=== PATIENT | male | born 1970 | race Caucasian/White ===

== ENCOUNTER 2018-08-24 02:08 | Inpatient (IN) | payer BC ==
[~2018-08-24] VITALS: Ht 157.5 cm; Wt 73.5 kg
--- NOTE | 2018-08-24 02:26 | ERD ---
ER Documentation Chief Complaint Chief Complaint cough x 8days; hx dialysis every MWF HPI The patient is a 48-year-old male, presenting to the ER because of persistent dry cough for the last 8 days with subjective fever. Denies nasal congestion, neck pain, chest pain, complains of vague abdominal discomfort for the last 8 day with diarrhea. He denies dysuria, diarrhea. He denies smoking or drinking. Past medical history: Chronic kidney disease on hemodialysis Sunday and Sunday Past surgical history: History of kidney transplant, right chest hemodialysis catheter, left upper extremity AV fistula ROS All systems reviewed and are negative except as per history of present illness. Allergies Allergies: Coded Allergies: No Known Allergy (Unverified , 08/24/18) Physical Exam Vitals Vital Signs Date Temp Pulse Resp B/P (MAP) Pulse Ox O2 O2 Flow FiO2 Time Delivery Rate 08/24/18 98.6 93 18 149/93 100 Room Air 04:49 (111) 08/24/18 100.7 105 20 169/98 99 02:12 (121) Physical Exam Const: No acute distress. Head: Atraumatic. Eyes: Normal Conjunctiva. ENT: Normal External Ears, Nose and Mouth. Neck: Full range of motion. No meningismus. Resp: Bilateral expiratory wheezes and crackle Cardio: Regular tachycardic Abd: Soft, non distended, normal bowel sounds, non tender. Skin: No petechiae or rashes. Back: No midline or flank tenderness. Ext: No cyanosis, or edema. Neur: Awake and alert. No focal deficit Psych: Normal Mood and Affect. Result Diagram: 08/24/1821408/24/18 021 Results 24 hrs Laboratory Tests Test 08/24/18 02:15 08/24/18 02:29 White Blood Count 8.9 10^3/ul Red Blood Count 2.81 10^6/ul Hemoglobin 7.6 g/dl Hematocrit 24.6 % Mean Corpuscular Volume 87.5 fl Mean Corpuscular Hemoglobin 27.0 pg Mean Corpuscular Hemoglobin Concent 30.9 g/dl Red Cell Distribution Width 15.4 % Platelet Count 282 10^3/UL Mean Platelet Volume 8.9 fl Immature Granulocytes % 0.800 % Neutrophils % 60.0 % Lymphocytes % 17.5 % Monocytes % 9.9 % Eosinophils % 11.0 % Basophils % 0.8 % Nucleated Red Blood Cells % 0.0 /100WBC Immature Granulocytes # 0.070 10^3/ul Neutrophils # 5.3 10^3/ul Lymphocytes # 1.6 10^3/ul Monocytes # 0.9 10^3/ul Eosinophils # 1.0 10^3/ul Basophils # 0.1 10^3/ul Nucleated Red Blood Cells # 0.0 10^3/ul Prothrombin Time 13.5 Sec Prothrombin Time Ratio 1.1 INR International Normalized Ratio 1.02 Activated Partial Thromboplast Time 43.3 Sec Sodium Level 136 mmol/L Potassium Level 5.1 mmol/L Chloride Level 94 mmol/L Carbon Dioxide Level 35 mmol/L Anion Gap 7 Blood Urea Nitrogen 19 mg/dl Creatinine 5.12 mg/dl Est Glomerular Filtrat Rate mL/min 12 mL/min Glucose Level 86 mg/dl Calcium Level 8.3 mg/dl Total Bilirubin 0.5 mg/dl Direct Bilirubin 0.00 mg/dl Indirect Bilirubin 0.5 mg/dl Aspartate Amino Transf (AST/SGOT) 44 IU/L Alanine Aminotransferase (ALT/SGPT) 22 IU/L Alkaline Phosphatase 102 IU/L Troponin I 0.016 ng/ml Total Protein 7.5 g/dl Albumin 3.3 g/dl Globulin 4.20 g/dl Albumin/Globulin Ratio 0.78 POC Venous Lactate 0.9 mmol/L Current Medications Medications Dose Sig/Zulma Start Time Status Last (Trade) Ordered Route PRN Stop Time Admin Dose Reason Admin 650 mg ONCE ONCE 08/24/18 DC 08/24/18 Acetaminophen PO 02:30 02:54 (Tylenol 08/24/18 02:31 Tab) Vancomycin 250 ml @ ONCE ONCE 08/24/18 08/24/18 HCl 125 mls/hr IVPB 03:30 04:08 08/24/18 05:29 Cefepime HCl 50 ml @ ONCE ONCE 08/24/18 DC 08/24/18 100 mls/hr IVPB 03:30 03:58 08/24/18 03:59 Procedures/MDM [place] [id number] Radiology Main Line: [phone] DIAGNOSTIC IMAGING REPORT Patient: ANISHA LOPEZ : 1970 Age: 48 Sex: M MR #: [id number] DOS: 08/24/18 0226 Ordering MD: CE ONEIL MD Location: E/R Room/Bed: PROCEDURE: XR Chest. CLINICAL INDICATION: Possible sepsis. TECHNIQUE: PA and Lateral views of the chest were obtained. COMPARISON: None. FINDINGS: Right central venous double-lumen dialysis catheter in place, with tip in the proximal right atrium. Cardiomegaly. Pulmonary vascular congestion and bilateral patchy mid lung and lung base air space disease. Airspace disease is greater in the bilateral mid lungs, and right greater than left. Airspace disease is also greater in the region of the right lung base. Findings may represent early pneumonias. Mild discoid atelectasis at the peripheral left mid lung. No signs of pleural fluid or pneumothorax are seen. The osseous structures and soft tissues are unremarkable. IMPRESSION: 1. Right central venous double-lumen dialysis catheter in place, with tip in the proximal right atrium. 2. Pulmonary vascular congestion is seen with bilateral patchy air space disease. 3. Airspace disease appears greater in the bilateral mid lungs, and is right greater than left. 4. Airspace disease is also greater in the region of the right lung base. 5. Differential considerations include early pneumonias. RPTAT: [facility] Physician Rhona Date Time Electronically viewed and signed by Physician Rhona on 08/24/2018 03:15 RS/ CC: CE ONEIL MD [id number] EKG: Read by emergency physician Rate/Rhythm: Normal Sinus Rhythm 76 beats/min QRS, ST, T-waves: No ST elevation, no T inversion, LAE Impression: Abnormal EKG MEDICAL MAKING DECISION: The patient is a 48-year-old male, presenting with acute bilateral pneumonia, was treated with Tylenol for fever, Xopenex 1.25 mg and Atrovent 0.5 mg for wheezing, vancomycin IV and cefepime IV for pneumonia with good response. The differential diagnoses considered include but are not limited to asthma, COPD, pneumonia, pulmonary embolus, pleural effusion, congestive heart failure. Departure Diagnosis: Primary Impression: Bilateral pneumonia Additional Impression: Anemia Condition: Stable Comments The patient's blood pressure was elevated (>120/80) but appears stable without evidence of hypertension emergency or urgency. The patient was counseled about the risks of hypertension and urged to pursue outpatient monitoring and therapy within a week with their primary care physician. I discussed the findings with the patient. I discussed the patient with Dr. Wallace at 4:30 AM , who was made aware of the lab, the treatment, the patient condi tion. The patient is admitted to [facility] Disclaimer: Inadvertent spelling and grammatical errors are likely due to EHR/dictation software use and do not reflect on the overall quality of patient care. Also, please note that the electronic time recorded on this note does not necessarily reflect the actual time of the patient encounter. CE ONEIL MD August 24, 2018 02:26
[2018-08-24] MEDS ORDERED: ACETAMINOPHEN 325 MG TAB PO ONE (02:30)
[2018-08-24] MEDS ORDERED: VANCOMYCIN 1 GM (PMX) 250 ML IVPB ONE (03:30)
[2018-08-24] MEDS ORDERED: CEFEPIME 1GM/50 ML (PMX) 50 ML IVPB ONE (03:30)
[2018-08-24] MEDS ORDERED: IPRATROPIUM (NEB) 0.5 MG/2.5 ML AMP HHN ONE (05:00)
[2018-08-24] MEDS ORDERED: LEVALBUTEROL (NEB) 1.25 MG/0.5 ML AMP HHN ONE (05:00)
[2018-08-24] MEDS ORDERED: FOLI-49 PO (05:10)
[2018-08-24] MEDS ORDERED: CARV6.2579 PO (05:10)
[2018-08-24] MEDS ORDERED: METO-336 PO (05:10)
[2018-08-24] MEDS ORDERED: AMLO-147 PO (05:11)
[2018-08-24 05:45] VITALS: BP 158/89; PULSE 90; RESP 18
[2018-08-24 06:00] VITALS: Ht 157.5 cm; Wt 73.5 kg
[2018-08-24] MEDS ORDERED: NACL 0.9% 3 ML SYG IV SCH (06:00)
[2018-08-24] MEDS ORDERED: ONDANSETRON 4 MG INJ IV PRN (06:00)
[2018-08-24] MEDS ORDERED: AMOX1TAB9 PO (06:10)
[2018-08-24] MEDS ORDERED: AZIT250T13 PO (06:10)
[2018-08-24] MEDS ORDERED: LOSA50TA14 PO (06:10)
[2018-08-24] MEDS ORDERED: GUAI1TBM12 PO (06:12)
[2018-08-24] MEDS ORDERED: Nyquil (06:12)
[2018-08-24 08:00] VITALS: BP 148/86; PULSE 86; RESP 20
[2018-08-24] MEDS: FOLIC ACID 1 MG TAB PO SCH (08:31)
[2018-08-24] MEDS: GUAIFENESIN 20 MG/ML 5ML CUP PO PRN ×2 (08:31→17:54)
[2018-08-24] MEDS: AMLODIPINE 10 MG TAB PO SCH (08:31)
--- NOTE | 2018-08-24 08:45 | HP ---
Date/Time of Note Date/Time of Note DATE: 08/24/18 TIME: 08:40 Assessment/Plan VTE Prophylaxis Risk score (from Ns)>0 risk: 4 SCD applied (from Ns): Yes Pharmacological prophylaxis: other Lines/Catheters IV Catheter Type (from Nrs): Saline Lock Assessment/Plan Assessment/Plan 1. Sepsis, as evidenced by fever and tachycardia: Secondary to pneumonia -will treat for healthcare last visit and pneumonia. Patient reported being hospitalized for 3 days in the hospital in [facility] -Follow-up culture results -Supplemental oxygen, bronchodilators as well as as needed antitussives -Obtain chest CT -Cough also result of pulmonary vascular congestion. See #2. Consider 2D echo 2. ESRD on HD (MWF) -Patient had a kidney transplant in 2013, but has been dialysis dependent for the past 5 months -Nephrology for dialysis 3. Anemia: Most likely chronic secondary to renal failure -We will however check ferritin/iron and FOBT to work-up for iron deficiency and GI bleed -Epogen per nephrology 4. Hypertension: Continue home meds. Adjust as needed Result Diagram: 08/24/18 0215 08/24/18 0215 Results 24hrs Laboratory Tests Test 08/24/18 02:15 08/24/18 02:29 08/24/18 05:28 08/24/18 07:22 White Blood Count 8.9 Red Blood Count 2.81 L Hemoglobin 7.6 L Hematocrit 24.6 L Mean Corpuscular 87.5 Volume Mean Corpuscular 27.0 L Hemoglobin Mean Corpuscular 30.9 L Hemoglobin Concent Red Cell 15.4 H Distribution Width Platelet Count 282 Mean Platelet Volume 8.9 Immature 0.800 H Granulocytes % Neutrophils % 60.0 Lymphocytes % 17.5 Monocytes % 9.9 Eosinophils % 11.0 H Basophils % 0.8 Nucleated Red Blood 0.0 Cells % Immature 0.070 H Granulocytes # Neutrophils # 5.3 Lymphocytes # 1.6 Monocytes # 0.9 Eosinophils # 1.0 H Basophils # 0.1 Nucleated Red Blood 0.0 Cells # Prothrombin Time 13.5 Prothrombin Time 1.1 Ratio INR International 1.02 Normalized Ratio Activated 43.3 H Partial Thromboplast Time Sodium Level 136 Potassium Level 5.1 Chloride Level 94 L Carbon Dioxide Level 35 H Anion Gap 7 Blood Urea Nitrogen 19 Creatinine 5.12 H Est Glomerular 12 L Filtrat Rate mL/min Glucose Level 86 Calcium Level 8.3 L Total Bilirubin 0.5 Direct Bilirubin 0.00 Indirect Bilirubin 0.5 Aspartate Amino 44 Transf (AST/SGOT) Alanine 22 Aminotransferase (AL T/SGPT) Alkaline Phosphatase 102 Troponin I 0.016 Total Protein 7.5 Albumin 3.3 Globulin 4.20 H Albumin/Globulin 0.78 Ratio POC Venous Lactate 0.9 Lactic Acid Level 0.8 0.6 HPI/ROS Admit Date/Time Admit Date/Time August 24, 2018 at 04:31 Hx of Present Illness This is a 48-year-old male with a history of hypertension, kidney transplant in 2013, now dialysis dependent for the past 5 months who presented to ER complaining of cough, shortness of breath and subjective fever of over 1 week d uration. He said he was admitted in the hospital and [place] for 3 days without improvement in his symptoms. Cough has occasionally been productive of minimal amount of white sputum. He also complains of bilateral abdominal pain every time he coughs. When he presented to the ER, he was febrile with temperature 100.7. Chest x-ray shows the followin. Right central venous double-lumen dialysis catheter in place, with tip in the proximal right atrium. 2. Pulmonary vascular congestion is seen with bilateral patchy air space disease. 3. Airspace disease appears greater in the bilateral mid lungs, and is right greater than left. 4. Airspace disease is also greater in the region of the right lung base. 5. Differential considerations include early pneumonias. PMH/Family/Social Past Medical History Medical History: other (See HPI) Past Surgical History Past Surgical Hx: other (See HPI) Family History Significant Family History: no pertinent family hx Social History Alcohol Use: none Smoking Status: Never smoker Drug Use: none Exam Constitutional: no acute distress Head: normocephalic, atraumatic Eyes: EOMI, PERRL Respiratory: clear to auscultation, normal air movement Cardiovascular: regular rate and rhythm, nl pulses Gastrointestinal: soft, non-tender Extremities: normal pulses Medications Current Medications IV Flush (NS 3 ml) 3 ml PER PROTOCOL IV ; Start 08/24/18 at 06:00 Ondansetron HCl (Zofran Inj) 4 mg Q6H PRN IV NAUSEA/VOMITING; Start 08/24/18 at 06:00 Acetaminophen (Tylenol Tab) 650 mg Q6H PRN PO .PAIN 1-3 OR TEMP; Start 08/24/18 at 06:00 Albuterol/ Ipratropium (Duoneb) 3 ml Q2H RESP THERAPY PRN HHN SHORTNESS OF BREATH; Start 08/24/18 at 06:00 Amlodipine Besylate (Norvasc) 10 mg DAILY PO Last administered on 08/24/18at 08:31; Admin Dose 10 MG; Start 08/24/18 at 09:00 Carvedilol (Coreg) 6.25 mg BID PO Last administered on 08/24/18 08:31; Admin Dose 6.25 MG; Start 08/24/18 at 09:00 Folic Acid (Folic Acid) 1 mg DAILY PO Last administered on 08/24/18 08:31; Admin Dose 1 MG; Start 08/24/18 at 09:00 Metoprolol Succinate (Toprol Xl) 100 mg QHS PO ; Start 08/24/18 at 21:00 Guaifenesin (Robitussin Liquid Cup) 100 mg Q6 PRN PO COUGH Last administered on 08/24/18at 08:31; Admin Dose 100 MG; Start 08/24/18 at 08:00; Stop 08/25/18 at 07:59 Coded Allergies: No Known Allergy (Unverified , 08/24/18) Social History Smoking Status: Never smoker Exam/Review of Systems Vital Signs Vitals Vital Signs Date Temp Pulse Resp B/P (MAP) Pulse Ox O2 O2 Flow FiO2 Time Delivery Rate 08/24/18 98.8 86 20 148/86 96 08:00 (106) 08/24/18 Room Air 05:45 08/24/18 21 05:08 Intake and Output 08/23/18 08/23/18 08/24/18 1515:00 23:00 07:00 IntakeIntake Total 50 ml BalanceBalance 50 ml MATT FERNANDEZ MD August 24, 2018 08:45
[2018-08-24] MEDS ORDERED: VANCOMYCIN IV PER PHARMACY XX SCH (09:00)
[2018-08-24] MEDS ORDERED: VANCOMYCIN 500 MG (PMX) 100 ML IVPB SCH (11:00)
--- NOTE | 2018-08-24 12:55 | PN ---
Date/Time of Note Date/Time of Note DATE: 08/24/18 TIME: 12:54 Assessment/Plan VTE Prophylaxis Risk score (from Ns)>0 risk: 4 SCD applied (from Ns): Yes Pharmacological prophylaxis: NA/contraindicated Pharm contraindication: low risk/ambulating Lines/Catheters IV [facility]from [facility] Saline Lock Assessment/Plan Hospital Course SUBJECTIVE: Complains of dyspnea with exertion. OBJECTIVE: Physical Exam General: Adequately build 48 year-old male lying in bed in no apparent distress. HEENT: Normocephalic, atraumatic. Eyes: Anicteric sclerae, conjunctivae clear. ENT: Nasal septum midline, oral mucosa moist. Neck supple, no JVD noticed. Respiratory: Bilaterally diminished breath sounds. Cardiac: Regular rate and rhythm. Abdomen: Soft, nontender, and nondistended. Bowel sounds positive in all 4 quadrants. Genitourinary: Deferred. Extremities: No cyanosis, no clubbing, no edema. Peripheral pulses palpable. Neurologic: Cranial nerves II through XII grossly intact. The patient is awake, alert, and oriented. Skin: Normal skin turgor. No skin rashes. Labs & Vitals per chart ASSESSMENT & PLAN 48-year-old male with past medical history of hypertension, status post renal transplant in 2013, now dependent on hemodialysis who presents to the emergency room complaining of cough for over 1 week duration with subjective fevers. The patient's chest imaging was showing evidence of bilateral patchy perihilar in filtrates. The patient was admitted to inpatient setting for further treatment and evaluation. 1. Healthcare associated pneumonia. -Continue vancomycin plus cefepime. -Pancultures pending. 2. Hypertension. -Continue antihypertensives. 3. End-stage renal disease on hemodialysis M/W/F. -Obtain nephrology consult. 4. Status post kidney transplant in 2013. -Obtain nephrology consult. 5. Normocytic anemia. -Stool for OB x1-. -Epogen will be deferred to nephrology. 6. Fluids, electrolytes, and nutrition. -Renal diet. 7. DVT prophylaxis -Bilateral SCDs. 8. Plan. -Continue antimicrobials. -Await clinical improvement before discharging the patient home. The patient was seen in collaboration with Dr. Quach. Result Diagram: 08/24/1821408/24/18214 Results 24hrs Laboratory Tests Test 08/24/18 02:15 08/24/18 02:29 08/24/18 05:28 08/24/18 07:22 White Blood Count 8.9 Red Blood Count 2.81 L Hemoglobin 7.6 L Hematocrit 24.6 L Mean Corpuscular 87.5 Volume Mean Corpuscular 27.0 L Hemoglobin Mean Corpuscular 30.9 L Hemoglobin Concent Red Cell 15.4 H Distribution Width Platelet Count 282 Mean Platelet Volume 8.9 Immature 0.800 H Granulocytes % Neutrophils % 60.0 Lymphocytes % 17.5 Monocytes % 9.9 Eosinophils % 11.0 H Basophils % 0.8 Nucleated Red Blood 0.0 Cells % Immature 0.070 H Granulocytes # Neutrophils # 5.3 Lymphocytes # 1.6 Monocytes # 0.9 Eosinophils # 1.0 H Basophils # 0.1 Nucleated Red Blood 0.0 Cells # Prothrombin Time 13.5 Prothrombin Time 1.1 Ratio INR International 1.02 Normalized Ratio Activated 43.3 H Partial Thromboplast Time Sodium Level 136 Potassium Level 5.1 Chloride Level 94 L Carbon Dioxide Level 35 H Anion Gap 7 Blood Urea Nitrogen 19 Creatinine 5.12 H Est Glomerular 12 L Filtrat Rate mL/min Glucose Level 86 Calcium Level 8.3 L Total Bilirubin 0.5 Direct Bilirubin 0.00 Indirect Bilirubin 0.5 Aspartate Amino 44 Transf (AST/SGOT) Alanine 22 Aminotransferase (AL T/SGPT) Alkaline Phosphatase 102 Troponin I 0.016 Total Protein 7.5 Albumin 3.3 Globulin 4.20 H Albumin/Globulin 0.78 Ratio POC Venous Lactate 0.9 Lactic Acid Level 0.8 0.6 Test 08/24/18 09:50 Stool Occult Blood NEGATIVE Exam/Review of Systems Exam Vitals Vital Signs Date Temp Pulse Resp B/P (MAP) Pulse Ox O2 O2 Flow FiO2 Time Delivery Rate 08/24/18 98.8 86 20 148/86 96 08:00 (106) 08/24/18 Room Air 05:45 08/24/18 21 05:08 Intake and Output 08/23/18 08/23/18 08/24/18 1515:00 23:00 07:00 IntakeIntake Total 50 ml BalanceBalance 50 ml Results Results 24hrs Laboratory Tests Test 08/24/18 02:15 08/24/18 02:29 08/24/18 05:28 08/24/18 07:22 White Blood Count 8.9 Red Blood Count 2.81 L Hemoglobin 7.6 L Hematocrit 24.6 L Mean Corpuscular 87.5 Volume Mean Corpuscular 27.0 L Hemoglobin Mean Corpuscular 30.9 L Hemoglobin Concent Red Cell 15.4 H Distribution Width Platelet Count 282 Mean Platelet Volume 8.9 Immature 0.800 H Granulocytes % Neutrophils % 60.0 Lymphocytes % 17.5 Monocytes % 9.9 Eosinophils % 11.0 H Basophils % 0.8 Nucleated Red Blood 0.0 Cells % Immature 0.070 H Granulocytes # Neutrophils # 5.3 Lymphocytes # 1.6 Monocytes # 0.9 Eosinophils # 1.0 H Basophils # 0.1 Nucleated Red Blood 0.0 Cells # Prothrombin Time 13.5 Prothrombin Time 1.1 Ratio INR International 1.02 Normalized Ratio Activated 43.3 H Partial Thromboplast Time Sodium Level 136 Potassium Level 5.1 Chloride Level 94 L Carbon Dioxide Level 35 H Anion Gap 7 Blood Urea Nitrogen 19 Creatinine 5.12 H Est Glomerular 12 L Filtrat Rate mL/min Glucose Level 86 Calcium Level 8.3 L Total Bilirubin 0.5 Direct Bilirubin 0.00 Indirect Bilirubin 0.5 Aspartate Amino 44 Transf (AST/SGOT) Alanine 22 Aminotransferase (AL T/SGPT) Alkaline Phosphatase 102 Troponin I 0.016 Total Protein 7.5 Albumin 3.3 Globulin 4.20 H Albumin/Globulin 0.78 Ratio POC Venous Lactate 0.9 Lactic Acid Level 0.8 0.6 Test 08/24/18 09:50 Stool Occult Blood NEGATIVE Medications Medication Current Medications IV Flush (NS 3 ml) 3 ml PER PROTOCOL IV ; Start 08/24/18 at 06:00 Ondansetron HCl (Zofran Inj) 4 mg Q6H PRN IV NAUSEA/VOMITING; Start 08/24/18 at 06:00 Acetaminophen (Tylenol Tab) 650 mg Q6H PRN PO .PAIN 1-3 OR TEMP; Start 08/24/18 at 06:00 Albuterol/ Ipratropium (Duoneb) 3 ml Q2H RESP THERAPY PRN HHN SHORTNESS OF BREATH; Start 08/24/18 at 06:00 Amlodipine Besylate (Norvasc) 10 mg DAILY PO Last administered on 08/24/18at 08:31; Admin Dose 10 MG; Start 08/24/18 at 09:00 Carvedilol (Coreg) 6.25 mg BID PO Last administered on 08/24/18at 08:31; Admin Dose 6.25 MG; Start 08/24/18 at 09:00 Folic Acid (Folic Acid) 1 mg DAILY PO Last administered on 08/24/18at 08:31; Admin Dose 1 MG; Start 08/24/18 at 09:00 Metoprolol Succinate (Toprol Xl) 100 mg QHS PO ; Start 08/24/18 at 21:00 Guaifenesin (Robitussin Liquid Cup) 100 mg Q6 PRN PO COUGH Last administered on 08/24/18at 08:31; Admin Dose 100 MG; Start 08/24/18 at 08:00; Stop 08/25/18 at 07:59 Cefepime HCl 50 ml @ 100 mls/hr Q24H IVPB ; Start 08/25/18 at 06:00 Vancomycin HCl (Vanco Iv Per Pharmacy) VANCOMYCIN PER PHARMACY PER PROTOCOL XX ; Start 08/24/18 at 09:00 Vancomycin HCl 100 ml @ 100 mls/hr ONCE@1100 IVPB Last administered on 08/24/18at 10:42; Admin Dose 100 MLS/HR; Start 08/24/18 at 11:00; Stop 08/24/18 at 16:00 BYRON NEGRETE NP August 24, 2018 12:55
[2018-08-24] MEDS: ALBUTEROL/IPRATROPIUM (NEB) 3 ML AMP HHN PRN ×2 (13:59→23:17)
[2018-08-24 14:00] VITALS: BP 150/76; PULSE 90; RESP 20
[2018-08-24] MEDS ORDERED: SODIUM POLYSTYRENE 15 GM KIT (POWDER + SORBITOL) PO ONE (14:00)
--- NOTE | 2018-08-24 17:21 | CONS ---
Assessment/Plan Assessment/Plan Assessment/Plan 1.Community acquired pneumonia 2.ESRD on HD, MWF 3.Htn 4.Hyperkalemia 5.Dyslipidemia 6.Anemia sec to Ckd -Hyperkalemia, kayexalate 30gm po x1 now -HD mon -Monitor lytes -Monitor bp -Anemia, monitor H&H for now Consultation Date/Type/Reason Admit Date/Time August 24, 2018 at 04:31 Type of Consult Nephrology Reason for Consultation ESRD on HD Date/Time of Note DATE: 08/24/18 TIME: 17:12 Respiratory: shortness of breath Past Medical History Medical History Nephrology: congestive heart failure, coronary artery disease, hypertension, renal disease Home Meds Reported Medications Guaifenesin/Dextromethorphan (Mucinex Dm ER 1,200-60 mg Tab) 1 Each Tbmp.12hr, 1 EACH PO, TAB 08/24/18 [Nyquil] No Conflict Check, 30 ML 08/24/18 Azithromycin* (Azithromycin*) 250 Mg Tablet, 500 MG PO ONCE for 1 Day, #1 TAB 08/24/18 Amoxicillin/Potassium Clav (Amox-Clav 500-125 mg Tablet) 500-125 mg Tab, 1 TAB PO DAILY for 5 Days, TAB 08/24/18 Losartan Potassium* (Losartan Potassium*) 50 Mg Tablet, 50 MG PO BID, TAB 08/24/18 Amlodipine Besylate* (Amlodipine Besylate*) 10 Mg Tablet, 10 MG PO DAILY for 30 Days, #30 08/24/18 Metoprolol Succinate* (Toprol XL*) 100 Mg Tab.sr.24h, 100 MG PO QHS for 30 Days, #30 08/24/18 Carvedilol* (Carvedilol*) 6.25 Mg Tablet, 6.25 MG PO BID for 30 Days, #60 08/24/18 Folic Acid* (Folic Acid*) 1 Mg Tablet, 1 MG PO DAILY for 30 Days, #30 08/24/18 Medications Current Medications IV Flush (NS 3 ml) 3 ml PER PROTOCOL IV ; Start 08/24/18 at 06:00 Ondansetron HCl (Zofran Inj) 4 mg Q6H PRN IV NAUSEA/VOMITING; Start 08/24/18 at 06:00 Acetaminophen (Tylenol Tab) 650 mg Q6H PRN PO .PAIN 1-3 OR TEMP; Start 08/24/18 at 06:00 Albuterol/ Ipratropium (Duoneb) 3 ml Q2H RESP THERAPY PRN HHN SHORTNESS OF BREATH Last administered on 08/24/18at 13:59; Admin Dose 3 ML; Start 08/24/18 at 06:00 Amlodipine Besylate (Norvasc) 10 mg DAILY PO Last administered on 08/24/18 08:31; Admin Dose 10 MG; Start 08/24/18 at 09:00 Carvedilol (Coreg) 6.25 mg BID PO Last administered on 08/24/18 08:31; Admin Dose 6.25 MG; Start 08/24/18 at 09:00 Folic Acid (Folic Acid) 1 mg DAILY PO Last administered on 08/24/18 08:31; Admin Dose 1 MG; Start 08/24/18 at 09:00 Metoprolol Succinate (Toprol Xl) 100 mg QHS PO ; Start 08/24/18 at 21:00 Guaifenesin (Robitussin Liquid Cup) 100 mg Q6 PRN PO COUGH Last administered on 08/24/18 08:31; Admin Dose 100 MG; Start 08/24/18 at 08:00; Stop 08/25/18 at 07:59 Cefepime HCl 50 ml @ 100 mls/hr Q24H IVPB ; Start 08/25/18 at 06:00 Vancomycin HCl (Vanco Iv Per Pharmacy) VANCOMYCIN PER PHARMACY PER PROTOCOL XX ; Start 08/24/18 at 09:00 Allergies: Coded Allergies: No Known Allergy (Unverified , 08/24/18) Past Surgical History Past Surgical Hx: other (Access placemnet for HD) Family History Significant Family History: no pertinent family hx Social History Alcohol Use: none Smoking Status: Never smoker Exam/Review of Systems Vital Signs Vitals Vital Signs Date Temp Pulse Resp B/P (MAP) Pulse Ox O2 O2 Flow FiO2 Time Delivery Rate 08/24/18 88 20 21 14:03 08/24/18 98.9 150/76 98 14:00 (100) 08/24/18 Room Air 05:45 Intake and Output 08/23/18 08/23/18 08/24/18 1515:00 23:00 07:00 IntakeIntake Total 50 ml BalanceBalance 50 ml Exam Respiratory: clear to auscultation Cardiovascular: regular rate and rhythm Gastrointestinal: soft Extremities: other (No edema) Neurological: nl mental status Skin: nl turgor Labs Result Diagram: 08/24/18 0215 08/24/18 0215 Results 24hrs Laboratory Tests Test 08/24/18 02:15 08/24/18 02:29 08/24/18 05:28 08/24/18 07:22 White Blood Count 8.9 Red Blood Count 2.81 L Hemoglobin 7.6 L Hematocrit 24.6 L Mean Corpuscular 87.5 Volume Mean Corpuscular 27.0 L Hemoglobin Mean Corpuscular 30.9 L Hemoglobin Concent Red Cell 15.4 H Distribution Width Platelet Count 282 Mean Platelet Volume 8.9 Immature 0.800 H Granulocytes % Neutrophils % 60.0 Lymphocytes % 17.5 Monocytes % 9.9 Eosinophils % 11.0 H Basophils % 0.8 Nucleated Red Blood 0.0 Cells % Immature 0.070 H Granulocytes # Neutrophils # 5.3 Lymphocytes # 1.6 Monocytes # 0.9 Eosinophils # 1.0 H Basophils # 0.1 Nucleated Red Blood 0.0 Cells # Prothrombin Time 13.5 Prothrombin Time 1.1 Ratio INR International 1.02 Normalized Ratio Activated 43.3 H Partial Thromboplast Time Sodium Level 136 Potassium Level 5.1 Chloride Level 94 L Carbon Dioxide Level 35 H Anion Gap 7 Blood Urea Nitrogen 19 Creatinine 5.12 H Est Glomerular 12 L Filtrat Rate mL/min Glucose Level 86 Calcium Level 8.3 L Total Bilirubin 0.5 Direct Bilirubin 0.00 Indirect Bilirubin 0.5 Aspartate Amino 44 Transf (AST/SGOT) Alanine 22 Aminotransferase (AL T/SGPT) Alkaline Phosphatase 102 Troponin I 0.016 Total Protein 7.5 Albumin 3.3 Globulin 4.20 H Albumin/Globulin 0.78 Ratio POC Venous Lactate 0.9 Lactic Acid Level 0.8 0.6 Test 08/24/18 09:50 Stool Occult Blood NEGATIVE Medications Medications Current Medications IV Flush (NS 3 ml) 3 ml PER PROTOCOL IV ; Start 08/24/18 at 06:00 Ondansetron HCl (Zofran Inj) 4 mg Q6H PRN IV NAUSEA/VOMITING; Start 08/24/18 at 06:00 Acetaminophen (Tylenol Tab) 650 mg Q6H PRN PO .PAIN 1-3 OR TEMP; Start 08/24/18 at 06:00 Albuterol/ Ipratropium (Duoneb) 3 ml Q2H RESP THERAPY PRN HHN SHORTNESS OF BREATH Last administered on 08/24/18 13:59; Admin Dose 3 ML; Start 08/24/18 at 06:00 Amlodipine Besylate (Norvasc) 10 mg DAILY PO Last administered on 08/24/18 08:31; Admin Dose 10 MG; Start 08/24/18 at 09:00 Carvedilol (Coreg) 6.25 mg BID PO Last administered on 08/24/18 08:31; Admin Dose 6.25 MG; Start 08/24/18 at 09:00 Folic Acid (Folic Acid) 1 mg DAILY PO Last administered on 08/24/18 08:31; Admin Dose 1 MG; Start 08/24/18 at 09:00 Metoprolol Succinate (Toprol Xl) 100 mg QHS PO ; Start 08/24/18 at 21:00 Guaifenesin (Robitussin Liquid Cup) 100 mg Q6 PRN PO COUGH Last administered on 08/24/18 08:31; Admin Dose 100 MG; Start 08/24/18 at 08:00; Stop 08/25/18 at 07:59 Cefepime HCl 50 ml @ 100 mls/hr Q24H IVPB ; Start 08/25/18 at 06:00 Vancomycin HCl (Vanco Iv Per Pharmacy) VANCOMYCIN PER PHARMACY PER PROTOCOL XX ; Start 08/24/18 at 09:00 KEE HERNANDEZ August 24, 2018 17:21
[2018-08-24 20:00] VITALS: BP 154/84; PULSE 95; RESP 19
[2018-08-24] MEDS: METOPROLOL (XL) 100 MG TAB PO SCH (21:03)
[2018-08-25] VITALS (19 sets, daily range): BP systolic 157–183; BP diastolic 88–106; PULSE 80–114; RESP 17–18
[2018-08-25] MEDS: GUAIFENESIN 20 MG/ML 5ML CUP PO PRN (02:48)
[2018-08-25] MEDS: CEFEPIME 1GM/50 ML (PMX) 50 ML IVPB SCH (06:01)
[2018-08-25] MEDS ORDERED: SOD CHLORIDE 0.9% 250 ML IV* ONE (07:37)
--- NOTE | 2018-08-25 07:53 | PN ---
Date/Time of Note Date/Time of Note DATE: 08/25/18 TIME: 07:52 Assessment/Plan VTE Prophylaxis Risk score (from Ns)>0 risk: 4 SCD applied (from Ns): Yes Pharmacological prophylaxis: NA/contraindicated Pharm contraindication: other (Anemia) Lines/Catheters IV [facility] Sal[place] Lock Assessment/Plan Hospital Course SUBJECTIVE: Complains of cough. OBJECTIVE: Physical Exam General: Adequately build 48 year-old male lying in bed in no apparent distress. HEENT: Normocephalic, atraumatic. Eyes: Anicteric sclerae, conjunctivae clear. ENT: Nasal septum midline, oral mucosa moist. Neck supple, no JVD noticed. Respiratory: Bilaterally diminished breath sounds. Cardiac: Regular rate and rhythm. Abdomen: Soft, nontender, and nondistended. Bowel sounds positive in all 4 quadrants. Genitourinary: Deferred. Extremities: No cyanosis, no clubbing, no edema. Peripheral pulses palpable. Neurologic: Cranial nerves II through XII grossly intact. The patient is awake, alert, and oriented. Skin: Normal skin turgor. No skin rashes. Labs & Vitals per chart ASSESSMENT & PLAN 48-year-old male with past medical history of hypertension, status post renal transplant in 2013, now dependent on hemodialysis who presents to the emergency room complaining of cough for over 1 week duration with subjective fevers. The patient's chest imaging was showing evidence of bilateral patchy perihilar infiltrates. The patient was admitted to inpatient setting for further treatment and evaluation. 1. Healthcare associated pneumonia. -Continue vancomycin plus cefepime. -Pancultures negative so far. 2. Hypertension. -Continue antihypertensives. 3. End-stage renal disease on hemodialysis M/W/F. -Nephrology following. 4. Status post kidney transplant in 2013. -Nephrology following. 5. Normocytic anemia. -Stool for OB x1-. -Epogen will be deferred to nephrology. -PRBC transfusion ordered. -Start iron supplements. 6. Fluids, electrolytes, and nutrition. -Renal diet. 7. DVT prophylaxis -Bilateral SCDs. 8. Plan. -Continue antimicrobials. -Await clinical improvement before discharging the patient home. The patient was seen in collaboration with Dr. Quach. Result Diagram: 08/25/18 0505 08/25/18 0505 Results 24hrs Laboratory Tests Test 08/24/18 09:50 08/25/18 05:05 Stool Occult Blood NEGATIVE White Blood Count 8.9 Red Blood Count 2.35 L Hemoglobin 6.5 *L Hematocrit 20.3 L Mean Corpuscular Volume 86.4 Mean Corpuscular Hemoglobin 27.7 L Mean Corpuscular Hemoglobin Concent 32.0 Red Cell Distribution Width 15.3 H Platelet Count 264 Mean Platelet Volume 9.3 Immature Granulocytes % 0.600 H Neutrophils % 62.4 Lymphocytes % 16.6 Monocytes % 10.1 Eosinophils % 9.6 H Basophils % 0.7 Nucleated Red Blood Cells % 0.0 Immature Granulocytes # 0.050 H Neutrophils # 5.6 Lymphocytes # 1.5 Monocytes # 0.9 Eosinophils # 0.9 H Basophils # 0.1 Nucleated Red Blood Cells # 0.0 Pathologist Review (Hematology) YES Sodium Level 130 L Potassium Level 4.9 Chloride Level 92 L Carbon Dioxide Level 27 Anion Gap 11 Blood Urea Nitrogen 28 H Creatinine 8.02 #H Est Glomerular Filtrat Rate mL/min 7 L Glucose Level 91 Calcium Level 8.2 L Phosphorus Level 3.3 Magnesium Level 1.9 Iron Level 16 L Total Iron Binding Capacity 146 L Percent Iron Saturation 11 L Ferritin 891.0 H Total Bilirubin 0.4 Direct Bilirubin 0.00 Indirect Bilirubin 0.4 Aspartate Amino Transf (AST/SGOT) 34 Alanine Aminotransferase (ALT/SGPT) 21 Alkaline Phosphatase 96 Total Protein 7.1 Albumin 3.1 L Globulin 4.00 H Albumin/Globulin Ratio 0.77 Triglycerides Level 149 Cholesterol Level 112 LDL Cholesterol, Calculated 56 HDL Cholesterol 26 L Cholesterol/HDL Ratio 4.3 Exam/Review of Systems Exam Vitals Vital Signs Date Temp Pulse Resp B/P (MAP) Pulse Ox O2 O2 Flow FiO2 Time Delivery Rate 08/25/18 98.5 99 18 162/88 99 02:22 (112) 08/24/18 21 23:17 08/24/18 Room Air 05:45 Intake and Output 08/24/18 08/24/18 08/25/18 1515:00 23:00 07:00 IntakeIntake Total 860 ml 400 ml BalanceBalance 860 ml 400 ml Results Results 24hrs Laboratory Tests Test 08/24/18 09:50 08/25/18 05:05 Stool Occult Blood NEGATIVE White Blood Count 8.9 Red Blood Count 2.35 L Hemoglobin 6.5 *L Hematocrit 20.3 L Mean Corpuscular Volume 86.4 Mean Corpuscular Hemoglobin 27.7 L Mean Corpuscular Hemoglobin Concent 32.0 Red Cell Distribution Width 15.3 H Platelet Count 264 Mean Platelet Volume 9.3 Immature Granulocytes % 0.600 H Neutrophils % 62.4 Lymphocytes % 16.6 Monocytes % 10.1 Eosinophils % 9.6 H Basophils % 0.7 Nucleated Red Blood Cells % 0.0 Immature Granulocytes # 0.050 H Neutrophils # 5.6 Lymphocytes # 1.5 Monocytes # 0.9 Eosinophils # 0.9 H Basophils # 0.1 Nucleated Red Blood Cells # 0.0 Pathologist Review (Hematology) YES Sodium Level 130 L Potassium Level 4.9 Chloride Level 92 L Carbon Dioxide Level 27 Anion Gap 11 Blood Urea Nitrogen 28 H Creatinine 8.02 #H Est Glomerular Filtrat Rate mL/min 7 L Glucose Level 91 Calcium Level 8.2 L Phosphorus Level 3.3 Magnesium Level 1.9 Iron Level 16 L Total Iron Binding Capacity 146 L Percent Iron Saturation 11 L Ferritin 891.0 H Total Bilirubin 0.4 Direct Bilirubin 0.00 Indirect Bilirubin 0.4 Aspartate Amino Transf (AST/SGOT) 34 Alanine Aminotransferase (ALT/SGPT) 21 Alkaline Phosphatase 96 Total Protein 7.1 Albumin 3.1 L Globulin 4.00 H Albumin/Globulin Ratio 0.77 Triglycerides Level 149 Cholesterol Level 112 LDL Cholesterol, Calculated 56 HDL Cholesterol 26 L Cholesterol/HDL Ratio 4.3 Medications Medication Current Medications IV Flush (NS 3 ml) 3 ml PER PROTOCOL IV ; Start 08/24/18 at 06:00 Ondansetron HCl (Zofran Inj) 4 mg Q6H PRN IV NAUSEA/VOMITING; Start 08/24/18 at 06:00 Acetaminophen (Tylenol Tab) 650 mg Q6H PRN PO .PAIN 1-3 OR TEMP; Start 08/24/18 at 06:00 Albuterol/ Ipratropium (Duoneb) 3 ml Q2H RESP THERAPY PRN HHN SHORTNESS OF BREATH Last administered on 08/24/18at 23:17; Admin Dose 3 ML; Start 08/24/18 at 06:00 Amlodipine Besylate (Norvasc) 10 mg DAILY PO Last administered on 08/24/18at 08:31; Admin Dose 10 MG; Start 08/24/18 at 09:00 Carvedilol (Coreg) 6.25 mg BID PO Last administered on 08/24/18at 21:04; Admin Dose 6.25 MG; Start 08/24/18 at 09:00 Folic Acid (Folic Acid) 1 mg DAILY PO Last administered on 08/24/18at 08:31; Admin Dose 1 MG; Start 08/24/18 at 09:00 Metoprolol Succinate (Toprol Xl) 100 mg QHS PO Last administered on 08/24/18at 21:03; Admin Dose 100 MG; Start 08/24/18 at 21:00 Guaifenesin (Robitussin Liquid Cup) 100 mg Q6 PRN PO COUGH Last administered on 08/25/18at 02:48; Admin Dose 100 MG; Start 08/24/18 at 08:00; Stop 08/25/18 at 07:59 Cefepime HCl 50 ml @ 100 mls/hr Q24H IVPB Last administered on 08/25/18at 06:01; Admin Dose 100 MLS/HR; Start 08/25/18 at 06:00 Vancomycin HCl (Vanco Iv Per Pharmacy) VANCOMYCIN PER PHARMACY PER PROTOCOL XX ; Start 08/24/18 at 09:00 BYRON NEGRETE NP August 25, 2018 07:53
[2018-08-25] MEDS ORDERED: SOD CHLORIDE 0.9% 1,000 ML IV PRN ×2 (08:28→08:33)
[2018-08-25] MEDS ORDERED: SODIUM CHLORIDE 0.9% 1L BAG IV PRN ×2 (08:30→09:00)
[2018-08-25] MEDS: AMLODIPINE 10 MG TAB PO SCH ×3 (09:00→16:18)
[2018-08-25] MEDS: FOLIC ACID 1 MG TAB PO SCH (10:02)
[2018-08-25] MEDS: GUAIFENESIN/DM 5ML CUP PO PRN ×2 (15:40→23:30)
[2018-08-25] MEDS: ACETAMINOPHEN 325 MG TAB PO PRN ×2 (16:19→23:36)
--- NOTE | 2018-08-25 16:51 | CONS ---
Assessment/Plan Assessment/Plan Assessment/Plan 1.Community acquired pneumonia 2.ESRD on HD, MWF 3.Htn 4.Hyperkalemia 5.Dyslipidemia 6.Anemia sec to Ckd 7.s/p kidney transplant -Hyperkalemia improved -Hyponatremia correct with HD -HD today given that pt had prbc transfusion and to avoid fluid overload -HD am, pts regular HD treatment -Monitor lytes -Uncontrolled Htn. Bp meds adjusted -Anemia, monitor H&H for now. Check iron studies. Stool OB x1 positive Consultation Date/Type/Reason Admit Date/Time August 24, 2018 at 04:31 Type of Consult Nephrology Date/Time of Note DATE: 08/25/18 TIME: 16:49 Hx of Present Illness Pt w/o complaints. PRBC transfusion for anemia Respiratory: cough Exam/Review of Systems Vital Signs Vitals Vital Signs Date Temp Pulse Resp B/P (MAP) Pulse Ox O2 O2 Flow FiO2 Time Delivery Rate 08/25/18 95 17 160/94 96 Room Air 14:51 (116) 08/25/18 98.8 08:57 08/24/18 21 23:17 Intake and Output 08/24/18 08/24/18 08/25/18 1515:00 23:00 07:00 IntakeIntake Total 860 ml 400 ml BalanceBalance 860 ml 400 ml Exam Exam HEENT: Mild pallor CHEST: clear CVS: S1S2 ABD: soft, BS+ EXT: No edema Constitutional: other (No distress) Labs Result Diagram: 08/25/18 0505 08/25/18 0505 Results 24hrs Laboratory Tests Test 08/25/18 05:05 08/25/18 09:30 White Blood Count 8.9 Red Blood Count 2.35 L Hemoglobin 6.5 *L Hematocrit 20.3 L Mean Corpuscular Volume 86.4 Mean Corpuscular Hemoglobin 27.7 L Mean Corpuscular Hemoglobin Concent 32.0 Red Cell Distribution Width 15.3 H Platelet Count 264 Mean Platelet Volume 9.3 Immature Granulocytes % 0.600 H Neutrophils % 62.4 Segmented Neutrophils % (Manual) 71 Band Neutrophils % (Manual) 2 Lymphocytes % 16.6 Lymphocytes % (Manual) 10 L Reactive Lymphocytes % (Manual) 2 H Monocytes % 10.1 Monocytes % (Manual) 5 Eosinophils % 9.6 H Eosinophils % (Manual) 10 H Basophils % 0.7 Nucleated Red Blood Cells % 0.0 Immature Granulocytes # 0.050 H Neutrophils # 5.6 Neutrophils # (Manual) 6.3 Band Neutrophils # 0.1 Lymphocytes (Manual) 0.8 Lymphocytes # 1.5 Reactive Lymphocytes # 0.1 H Monocytes # 0.9 Monocytes # (Manual) 0.4 Eosinophils # 0.9 H Basophils # 0.1 Nucleated Red Blood Cells # 0.0 Pathologist Review (Hematology) YES Platelet Estimate NORMAL Polychromasia 1+ Anisocytosis 1+ Microcytosis 1+ Sodium Level 130 L Potassium Level 4.9 Chloride Level 92 L Carbon Dioxide Level 27 Anion Gap 11 Blood Urea Nitrogen 28 H Creatinine 8.02 #H Est Glomerular Filtrat Rate mL/min 7 L Glucose Level 91 Hemoglobin A1c 5.6 Calcium Level 8.2 L Phosphorus Level 3.3 Magnesium Level 1.9 Iron Level 16 L Total Iron Binding Capacity 146 L Percent Iron Saturation 11 L Ferritin 891.0 H Total Bilirubin 0.4 Direct Bilirubin 0.00 Indirect Bilirubin 0.4 Aspartate Amino Transf (AST/SGOT) 34 Alanine Aminotransferase (ALT/SGPT) 21 Alkaline Phosphatase 96 Total Protein 7.1 Albumin 3.1 L Globulin 4.00 H Albumin/Globulin Ratio 0.77 Triglycerides Level 149 Cholesterol Level 112 LDL Cholesterol, Calculated 56 HDL Cholesterol 26 L Cholesterol/HDL Ratio 4.3 Hepatitis B Surface Antigen NEGATIVE Medications Medications Current Medications IV Flush (NS 3 ml) 3 ml PER PROTOCOL IV ; Start 08/24/18 at 06:00 Ondansetron HCl (Zofran Inj) 4 mg Q6H PRN IV NAUSEA/VOMITING; Start 08/24/18 at 06:00 Acetaminophen (Tylenol Tab) 650 mg Q6H PRN PO .PAIN 1-3 OR TEMP Last administered on 08/25/18at 16:19; Admin Dose 650 MG; Start 08/24/18 at 06:00 Albuterol/ Ipratropium (Duoneb) 3 ml Q2H RESP THERAPY PRN HHN SHORTNESS OF BREATH Last administered on 08/24/18at 23:17; Admin Dose 3 ML; Start 08/24/18 at 06:00 Amlodipine Besylate (Norvasc) 10 mg DAILY PO Last administered on 08/25/18at 16:18; Admin Dose 10 MG; Start 08/24/18 at 09:00 Carvedilol (Coreg) 6.25 mg BID PO Last administered on 08/25/18at 10:06; Admin Dose 6.25 MG; Start 08/24/18 at 09:00 Folic Acid (Folic Acid) 1 mg DAILY PO Last administered on 08/25/18at 10:02; Admin Dose 1 MG; Start 08/24/18 at 09:00 Metoprolol Succinate (Toprol Xl) 100 mg QHS PO Last administered on 08/24/18at 21:03; Admin Dose 100 MG; Start 08/24/18 at 21:00 Cefepime HCl 50 ml @ 100 mls/hr Q24H IVPB Last administered on 08/25/18at 06:01; Admin Dose 100 MLS/HR; Start 08/25/18 at 06:00 Vancomycin HCl (Vanco Iv Per Pharmacy) VANCOMYCIN PER PHARMACY PER PROTOCOL XX ; Start 08/24/18 at 09:00 Sodium Chloride 1,000 ml @ 0 mls/hr Q0M PRN IV TO KEEP SBP ABOVE 90; Start 08/25/18 at 08:28 Epoetin Josh-epbx (Retacrit (Non-Esrd)) 10,000 unit MoWeFr@17 SC ; Start 08/26/18 at 17:00 Sodium Chloride (NS) -To prime the dialy... DIRECTED FOR HD PRN IV HD; Start 08/25/18 at 08:30 Heparin Sodium (Porcine) (Heparin (1000 Units/ml)) 4,000 unit AFTER DIALYSIS CATHETER ; Start 08/25/18 at 09:00 Sodium Chloride 1,000 ml @ 0 mls/hr Q0M PRN IV TO KEEP SBP ABOVE 90; Start 08/25/18 at 08:33 Sodium Chloride (NS) -To prime the dialy... DIRECTED FOR HD PRN IV HD; Start 08/25/18 at 09:00 Miscellaneous Information (*Rx Drug Level Order Reminder*) RANDOM VANCO LEVEL... 0500 ONCE XX ; Start 08/26/18 at 05:00; Stop 08/26/18 at 05:01 Ferric Sodium Gluconate Complex 125 mg/Sodium Chloride 100 ml @ 100 mls/hr DAILY@1300 IVPB ; Start 08/26/18 at 13:00; Stop 08/28/18 at 13:59 Guaifenesin/ Dextromethorphan (Robitussin Dm Liquid Cup) 5 ml Q4H PRN PO Cough Last administered on 08/25/18at 15:40; Admin Dose 5 ML; Start 08/25/18 at 14:00 KEE HERNANDEZ August 25, 2018 16:51
--- NOTE | 2018-08-25 19:18 | RADRPT ---
Echocardiogram Report Patient Name: ANISHA LOPEZPatient ID: [id number] : 1970 (48y 6m)Study Date: 08/25/2018 8:52:09 AM Gender: Reneecession #: [id number] Tech: RENEE Location: [facility] Ref.Physician: MATT FERNANDEZ Height(Cm): 157 BSA: 1.79Weight(Kg): 73.5 Quality: AdequateOrder Physician: MATT FERNANDEZ Account #: Procedures: Echocardiographic Report: Transthoracic echocardiogram with complete 2D, M-Mode, and doppler examination. Indications: Congestive Heart Failure. Measurements: 2D/M Mode Doppler Measurement Value Normal Range Measurement Value Normal Range LVIDd 2D 5.7 [ 4.2 - 5.8 ] cm AV Peak Cristiano 1.6 [ 100.0 - 170.0 ] cm/se c LVIDs 2D 3.5 [ 2.5 - 4.0 ] cm AV Peak PG 11.0 [ 2.0 - 9.0 ] mmHg LVPWd 2D 1.2 [ 0.6 - 1.0 ] cm LVOT Peak Cristiano 1.1 [ 70.0 - 110.0 ] cm/sec IVSd 2D 1.2 [ 0.6 - 1.0 ] cm LVOT Peak PG 4.0 [ 2.0 - 6.0 ] mmHg AoR Diam 2D 3.3 [ 2.6 - 3.4 ] cm MV E Peak Cristiano 1.2 [ 60.0 - 130.0 ] cm/sec EDV 2D 163.0 [ 62.0 - 150.0 ] ml MV A Peak Cristiano 0.7 [ 100.0 - 120.0 ] cm/se c ESV 2D 52.3 [ 21.0 - 61.0 ] ml MV E/A 1.9 [ 0.8 - 1.5 ] ratio EF 2D 67.9 [ 52.0 - 72.0 ] percent MV PHT 41.0 [ 20.0 - 100.0 ] msec LA Dimen 2D 4.7 [ 3.0 - 4.0 ] cm MV Decel Time 140 [ 104 - 258 ] msec MV Decel [place] 9 Lat E` Cristiano 0.1 [ 10.0 - 15.0 ] cm/sec Lateral E/E` 10.0 [ 1.0 - 2.0 ] ratio Med E` Cristiano 0.1 cm/sec MV E/A 1.9 [ 0.8 - 1.5 ] ratio MVA PHT 5.4 [ 2.0 - 4.0 ] cm2 PV Peak Cristiano 1.3 [ 40.0 - 80.0 ] cm/sec PV Peak PG 7.0 mmHg Findings: Left Ventricle: Mild concentric left ventricular hypertrophy. Mild enlargement of left ventricle cavity. Mild global left ventricular systolic dysfunction. Ejection fraction is visually estimated at 45-50 %. Abnormal Diastolic Function. E/E'= 15. Right Ventricle: Normal right ventricular size. Normal right ventricular systolic function. Left Atrium: There is mild enlargement of left atrium. Right Atrium: The right atrium is normal in size. Atrial Septum: Normal atrial septum. Mitral Valve: Normal appearance of the mitral valve. Mild to moderate mitral valve regurgitation. Aortic Valve: No significant aortic stenosis or insufficiency. Normal trileaflet aortic valve structure. Tricuspid Valve: Normal appearance and function of the tricuspid valve with trace physiologic regurgitation. Pulmonic Valve: Normal pulmonic valve appearance. There is trace pulmonic regurgitation. Pericardium: Normal pericardium with no significant pericardial effusion. Pleural effusion seen. Aorta: Normal aortic root. IVC: Normal size and normal respiratory collapse consistent with normal right atrial pressure. Pulmonary Artery: Normal pulmonary artery size. Conclusions: Mild concentric left ventricular hypertrophy. Mild enlargement of left ventricle cavity. Mild global left ventricular systolic dysfunction. Ejection fraction is visually estimated at 45-50 %. Abnormal Diastolic Function. E/E'= 15. There is mild enlargement of left atrium. Normal appearance of the mitral valve. Mild to moderate mitral valve regurgitation. Normal appearance and function of the tricuspid valve with trace physiologic regurgitation. Normal pulmonic valve appearance. There is trace pulmonic regurgitation. n. Electronically Signed By: Yanick Joya 2018-08-25 19:18:18 PDT
[2018-08-25] MEDS: DOXAZOSIN 2 MG TAB PO SCH (21:08)
[2018-08-25] MEDS: METOPROLOL (XL) 100 MG TAB PO SCH (21:10)
[2018-08-25] MEDS ORDERED: LOPERAMIDE 2 MG CAP PO ONE (23:00)
[2018-08-25] MEDS ORDERED: LOPERAMIDE 2 MG CAP PO PRN (23:00)
[2018-08-26] VITALS (18 sets, daily range): BP systolic 150–185; BP diastolic 82–104; PULSE 90–109; RESP 17–19
[2018-08-26] MEDS: CEFEPIME 1GM/50 ML (PMX) 50 ML IVPB SCH (05:53)
[2018-08-26] MEDS: GUAIFENESIN/DM 5ML CUP PO PRN ×3 (05:53→21:12)
[2018-08-26] MEDS: ALBUTEROL/IPRATROPIUM (NEB) 3 ML AMP HHN PRN ×2 (06:09→17:58)
[2018-08-26] MEDS: FOLIC ACID 1 MG TAB PO SCH (08:52)
[2018-08-26] MEDS: AMLODIPINE 10 MG TAB PO SCH (08:52)
[2018-08-26] MEDS: DOXAZOSIN 2 MG TAB PO SCH ×2 (08:53→21:11)
[2018-08-26] MEDS ORDERED: hydrALAzine 20 MG INJ IV PRN (12:00)
[2018-08-26] MEDS: HEPARIN 1000 UNITS/ML 10 ML INJ CATHETER SCH (13:22)
[2018-08-26] MEDS: SOD FERRIC GLUC COMPLX 125 MG in SOD CHLORIDE 0.9% 100 ML IVPB SCH (13:40)
--- NOTE | 2018-08-26 14:53 | PN ---
Date/Time of Note Date/Time of Note DATE: 08/26/18 TIME: 14:51 Assessment/Plan VTE Prophylaxis Risk score (from Ns)>0 risk: 3 SCD applied (from Ns): Yes Pharmacological prophylaxis: NA/contraindicated Pharm contraindication: other (anemia) Lines/Catheters [facility] (from [facility]): Saline Lock Assessment/Plan Hospital Course SUBJECTIVE: Complains of cough. OBJECTIVE: Physical Exam General: Adequately build 48 year-old male lying in bed in no apparent distress. HEENT: Normocephalic, atraumatic. Eyes: Anicteric sclerae, conjunctivae clear. ENT: Nasal septum midline, oral mucosa moist. Neck supple, no JVD noticed. Respiratory: Bilaterally diminished breath sounds. Cardiac: Regular rate and rhythm. Abdomen: Soft, nontender, and nondistended. Bowel sounds positive in all 4 quadrants. Genitourinary: Deferred. Extremities: No cyanosis, no clubbing, no edema. Peripheral pulses palpable. Neurologic: Cranial nerves II through XII grossly intact. The patient is awake, alert, and oriented. Skin: Normal skin turgor. No skin rashes. Labs & Vitals per chart ASSESSMENT & PLAN 48-year-old male with past medical history of hypertension, status post renal transplant in 2013, now dependent on hemodialysis who presents to the emergency room complaining of cough for over 1 week duration with subjective fevers. The patient's chest imaging was showing evidence of bilateral patchy perihilar infiltrates. The patient was admitted to inpatient setting for further treatment and evaluation. 1. Healthcare associated pneumonia. -Continue vancomycin plus cefepime. -Pancultures negative so far. 2. Hypertension. -Continue antihypertensives. 3. End-stage renal disease on hemodialysis M/W/F. -Nephrology following. 4. Status post kidney transplant in 2013. -Nephrology following. 5. Normocytic anemia. -Stool for OB x1-. -Epogen will be deferred to nephrology. -PRBC transfusion ordered. -Start iron supplements. 6. Fluids, electrolytes, and nutrition. -Renal diet. 7. DVT prophylaxis -Bilateral SCDs. 8. Plan. -Continue antimicrobials. -Await clinical improvement before discharging the patient home. The patient was seen in collaboration with Dr. Quach. Result Diagram: 08/26/1851708/26/18517 Results 24hrs Laboratory Tests Test 08/26/18 05:18 White Blood Count 6.9 # Red Blood Count 2.81 L Hemoglobin 7.9 #L Hematocrit 24.3 L Mean Corpuscular Volume 86.5 Mean Corpuscular Hemoglobin 28.1 L Mean Corpuscular Hemoglobin Concent 32.5 Red Cell Distribution Width 14.2 Platelet Count 233 Mean Platelet Volume 9.1 Immature Granulocytes % 0.700 H Neutrophils % 60.8 Lymphocytes % 16.3 Monocytes % 12.4 H Eosinophils % 9.1 H Basophils % 0.7 Nucleated Red Blood Cells % 0.0 Immature Granulocytes # 0.050 H Neutrophils # 4.2 Lymphocytes # 1.1 Monocytes # 0.9 Eosinophils # 0.6 H Basophils # 0.1 Nucleated Red Blood Cells # 0.0 Sodium Level 130 L Potassium Level 4.8 Chloride Level 96 L Carbon Dioxide Level 27 Anion Gap 7 Blood Urea Nitrogen 18 # Creatinine 6.06 H Est Glomerular Filtrat Rate mL/min 10 L Glucose Level 89 Calcium Level 8.1 L Phosphorus Level 3.4 Magnesium Level 1.9 Random Vancomycin Level 18.0 Exam/Review of Systems Exam Vitals Vital Signs Date Temp Pulse Resp B/P (MAP) Pulse Ox O2 O2 Flow FiO2 Time Delivery Rate 08/26/18 90 13:10 08/26/18 18 182/91 98 Room Air 10:10 (121) 08/26/18 99.9 08:06 08/26/18 21 06:10 Intake and Output 08/25/18 08/25/18 08/26/18 1515:00 23:00 07:00 IntakeIntake Total 770 ml OutputOutput Total 3800 ml BalanceBalance -3800 ml 770 ml Results Results 24hrs Laboratory Tests Test 08/26/18 05:18 White Blood Count 6.9 # Red Blood Count 2.81 L Hemoglobin 7.9 #L Hematocrit 24.3 L Mean Corpuscular Volume 86.5 Mean Corpuscular Hemoglobin 28.1 L Mean Corpuscular Hemoglobin Concent 32.5 Red Cell Distribution Width 14.2 Platelet Count 233 Mean Platelet Volume 9.1 Immature Granulocytes % 0.700 H Neutrophils % 60.8 Lymphocytes % 16.3 Monocytes % 12.4 H Eosinophils % 9.1 H Basophils % 0.7 Nucleated Red Blood Cells % 0.0 Immature Granulocytes # 0.050 H Neutrophils # 4.2 Lymphocytes # 1.1 Monocytes # 0.9 Eosinophils # 0.6 H Basophils # 0.1 Nucleated Red Blood Cells # 0.0 Sodium Level 130 L Potassium Level 4.8 Chloride Level 96 L Carbon Dioxide Level 27 Anion Gap 7 Blood Urea Nitrogen 18 # Creatinine 6.06 H Est Glomerular Filtrat Rate mL/min 10 L Glucose Level 89 Calcium Level 8.1 L Phosphorus Level 3.4 Magnesium Level 1.9 Random Vancomycin Level 18.0 Medications Medication Current Medications IV Flush (NS 3 ml) 3 ml PER PROTOCOL IV ; Start 08/24/18 at 06:00 Ondansetron HCl (Zofran Inj) 4 mg Q6H PRN IV NAUSEA/VOMITING; Start 08/24/18 at 06:00 Acetaminophen (Tylenol Tab) 650 mg Q6H PRN PO .PAIN 1-3 OR TEMP Last administered on 08/25/18 23:36; Admin Dose 650 MG; Start 08/24/18 at 06:00 Albuterol/ Ipratropium (Duoneb) 3 ml Q2H RESP THERAPY PRN HHN SHORTNESS OF BREATH Last administered on 08/26/18 06:09; Admin Dose 3 ML; Start 08/24/18 at 06:00 Amlodipine Besylate (Norvasc) 10 mg DAILY PO Last administered on 08/25/18 16:18; Admin Dose 10 MG; Start 08/24/18 at 09:00 Carvedilol (Coreg) 6.25 mg BID PO Last administered on 08/25/18 21:09; Admin Dose 6.25 MG; Start 08/24/18 at 09:00 Folic Acid (Folic Acid) 1 mg DAILY PO Last administered on 08/26/18 08:52; Admin Dose 1 MG; Start 08/24/18 at 09:00 Metoprolol Succinate (Toprol Xl) 100 mg QHS PO Last administered on 08/25/18 21:10; Admin Dose 100 MG; Start 08/24/18 at 21:00 Cefepime HCl 50 ml @ 100 mls/hr Q24H IVPB Last administered on 08/26/18 05:53; Admin Dose 100 MLS/HR; Start 08/25/18 at 06:00 Vancomycin HCl (Vanco Iv Per Pharmacy) VANCOMYCIN PER PHARMACY PER PROTOCOL XX ; Start 08/24/18 at 09:00 Sodium Chloride 1,000 ml @ 0 mls/hr Q0M PRN IV TO KEEP SBP ABOVE 90; Start 08/25/18 at 08:28 Sodium Chloride (NS) -To prime the dialy... DIRECTED FOR HD PRN IV HD; Start 08/25/18 at 08:30 Heparin Sodium (Porcine) (Heparin (1000 Units/ml)) 4,000 unit AFTER DIALYSIS CATHETER Last administered on 08/26/18at 13:22; Admin Dose 3,200 UNIT; Start 08/25/18 at 09:00 Sodium Chloride 1,000 ml @ 0 mls/hr Q0M PRN IV TO KEEP SBP ABOVE 90; Start 08/25/18 at 08:33 Sodium Chloride (NS) -To prime the dialy... DIRECTED FOR HD PRN IV HD; Start 08/25/18 at 09:00 Ferric Sodium Gluconate Complex 125 mg/Sodium Chloride 100 ml @ 100 mls/hr DAILY@1300 IVPB Last administered on 08/26/18at 13:40; Admin Dose 100 MLS/HR; Start 08/26/18 at 13:00; Stop 08/28/18 at 13:59 Guaifenesin/ Dextromethorphan (Robitussin Dm Liquid Cup) 5 ml Q4H PRN PO Cough Last administered on 08/26/18at 13:45; Admin Dose 5 ML; Start 08/25/18 at 14:00 Doxazosin Mesylate (Cardura) 2 mg BID PO Last administered on 08/25/18at 21:08; Admin Dose 2 MG; Start 08/25/18 at 21:00 Loperamide HCl (Imodium Cap) 2 mg GIVE IF INDICATED PRN PO DIARRHEA; Start 08/25/18 at 23:00 Epoetin Josh-epbx (Retacrit (Non-Esrd)) 10,000 unit MoWeFr@1700 SC ; Start 08/26/18 at 17:00 Vancomycin HCl 250 ml @ 125 mls/hr ONCE ONCE IVPB ; Start 08/26/18 at 18:00; Stop 08/26/18 at 19:59 Hydralazine HCl (Apresoline) 10 mg Q6H PRN IV SBP>160 Last administered on 08/26/18at 12:08; Admin Dose 10 MG; Start 08/26/18 at 12:00 BYRON NEGRETE NP August 26, 2018 14:53
[2018-08-26] MEDS: EPOETIN ALFA-EPBX (NON-ESRD 10,000 UNIT/ML VIAL SC SCH (16:42)
[2018-08-26] MEDS ORDERED: EPOETIN ALFA-EPBX (NON-ESRD 10,000 UNIT/ML VIAL SC SCH (17:00)
[2018-08-26] MEDS ORDERED: VANCOMYCIN 1 GM 250 ML IVPB ONE (18:00)
--- NOTE | 2018-08-26 19:40 | CONS ---
Assessment/Plan Assessment/Plan Assessment/Plan 1.Community acquired pneumonia 2.ESRD on HD, MWF 3.Htn 4.Hyperkalemia 5.Dyslipidemia 6.Anemia sec to Ckd 7.s/p kidney transplant -HD today -Hyponatremia correct with HD -Pneumonia, continue IV antibiotics -Monitor lytes -Uncontrolled Htn. Bp meds adjusted -Anemia,s/p prbc transfusion. monitor H&H for now. Check iron studies. Stool OB x1 positive Consultation Date/Type/Reason Admit Date/Time August 24, 2018 at 1500 Type of Consult Nephrology Date/Time of Note DATE: 08/26/18 TIME: 19:39 Hx of Present Illness No complaints Exam/Review of Systems Vital Signs Vitals Vital Signs Date Temp Pulse Resp B/P (MAP) Pulse Ox O2 O2 Flow FiO2 Time Delivery Rate 08/26/18 93 20 21 17:58 08/26/18 154/82 15:22 (106) 08/26/18 98 Room Air 10:10 08/26/18 99.9 08:06 Intake and Output 08/25/18 08/25/18 08/26/18 1515:00 23:00 07:00 IntakeIntake Total 770 ml OutputOutput Total 3800 ml BalanceBalance -3800 ml 770 ml Exam Exam HEENT: Mild pallor CHEST: clear CVS: S1S2 ABD: soft, BS+ EXT: No edema Labs Result Diagram: 08/26/1818 08/26/18 0518 Results 24hrs Laboratory Tests Test 08/26/18 05:18 White Blood Count 6.9 # Red Blood Count 2.81 L Hemoglobin 7.9 #L Hematocrit 24.3 L Mean Corpuscular Volume 86.5 Mean Corpuscular Hemoglobin 28.1 L Mean Corpuscular Hemoglobin Concent 32.5 Red Cell Distribution Width 14.2 Platelet Count 233 Mean Platelet Volume 9.1 Immature Granulocytes % 0.700 H Neutrophils % 60.8 Lymphocytes % 16.3 Monocytes % 12.4 H Eosinophils % 9.1 H Basophils % 0.7 Nucleated Red Blood Cells % 0.0 Immature Granulocytes # 0.050 H Neutrophils # 4.2 Lymphocytes # 1.1 Monocytes # 0.9 Eosinophils # 0.6 H Basophils # 0.1 Nucleated Red Blood Cells # 0.0 Sodium Level 130 L Potassium Level 4.8 Chloride Level 96 L Carbon Dioxide Level 27 Anion Gap 7 Blood Urea Nitrogen 18 # Creatinine 6.06 H Est Glomerular Filtrat Rate mL/min 10 L Glucose Level 89 Calcium Level 8.1 L Phosphorus Level 3.4 Magnesium Level 1.9 Random Vancomycin Level 18.0 Medications Medications Current Medications IV Flush (NS 3 ml) 3 ml PER PROTOCOL IV ; Start 08/24/18 at 06:00 Ondansetron HCl (Zofran Inj) 4 mg Q6H PRN IV NAUSEA/VOMITING; Start 08/24/18 at 06:00 Acetaminophen (Tylenol Tab) 650 mg Q6H PRN PO .PAIN 1-3 OR TEMP Last administered on 08/25/18 23:36; Admin Dose 650 MG; Start 08/24/18 at 06:00 Albuterol/ Ipratropium (Duoneb) 3 ml Q2H RESP THERAPY PRN HHN SHORTNESS OF BREATH Last administered on 08/26/18 17:58; Admin Dose 3 ML; Start 08/24/18 at 06:00 Amlodipine Besylate (Norvasc) 10 mg DAILY PO Last administered on 08/25/18 16:18; Admin Dose 10 MG; Start 08/24/18 at 09:00 Carvedilol (Coreg) 6.25 mg BID PO Last administered on 08/25/18 21:09; Admin Dose 6.25 MG; Start 08/24/18 at 09:00 Folic Acid (Folic Acid) 1 mg DAILY PO Last administered on 08/26/18 08:52; Admin Dose 1 MG; Start 08/24/18 at 09:00 Metoprolol Succinate (Toprol Xl) 100 mg QHS PO Last administered on 08/25/18 21:10; Admin Dose 100 MG; Start 08/24/18 at 21:00 Cefepime HCl 50 ml @ 100 mls/hr Q24H IVPB Last administered on 08/26/18 05:53; Admin Dose 100 MLS/HR; Start 08/25/18 at 06:00 Vancomycin HCl (Vanco Iv Per Pharmacy) VANCOMYCIN PER PHARMACY PER PROTOCOL XX ; Start 08/24/18 at 09:00 Sodium Chloride 1,000 ml @ 0 mls/hr Q0M PRN IV TO KEEP SBP ABOVE 90; Start 08/25/18 at 08:28 Sodium Chloride (NS) -To prime the dialy... DIRECTED FOR HD PRN IV HD; Start 08/25/18 at 08:30 Heparin Sodium (Porcine) (Heparin (1000 Units/ml)) 4,000 unit AFTER DIALYSIS CATHETER Last administered on 08/26/18 13:22; Admin Dose 3,200 UNIT; Start 08/25/18 at 09:00 Sodium Chloride 1,000 ml @ 0 mls/hr Q0M PRN IV TO KEEP SBP ABOVE 90; Start 08/25/18 at 08:33 Sodium Chloride (NS) -To prime the dialy... DIRECTED FOR HD PRN IV HD; Start 08/25/18 at 09:00 Ferric Sodium Gluconate Complex 125 mg/Sodium Chloride 100 ml @ 100 mls/hr DAILY@1300 IVPB Last administered on 08/26/18 13:40; Admin Dose 100 MLS/HR; Start 08/26/18 at 13:00; Stop 08/28/18 at 13:59 Guaifenesin/ Dextromethorphan (Robitussin Dm Liquid Cup) 5 ml Q4H PRN PO Cough Last administered on 08/26/18 13:45; Admin Dose 5 ML; Start 08/25/18 at 14:00 Doxazosin Mesylate (Cardura) 2 mg BID PO Last administered on 08/25/18 21:08; Admin Dose 2 MG; Start 08/25/18 at 21:00 Loperamide HCl (Imodium Cap) 2 mg GIVE IF INDICATED PRN PO DIARRHEA; Start 08/25/18 at 23:00 Epoetin Josh-epbx (Retacrit (Non-Esrd)) 10,000 unit MoWeFr@1700 SC Last administered on 08/26/18 16:42; Admin Dose 10,000 UNIT; Start 08/26/18 at 17:00 Vancomycin HCl 250 ml @ 125 mls/hr ONCE ONCE IVPB Last administered on 08/26/18at 17:37; Admin Dose 125 MLS/HR; Start 08/26/18 at 18:00; Stop 08/26/18 at 19:59 Hydralazine HCl (Apresoline) 10 mg Q6H PRN IV SBP>160 Last administered on 08/26/18 12:08; Admin Dose 10 MG; Start 08/26/18 at 12:00 KEE HERNANDEZ August 26, 2018 19:40
[2018-08-26] MEDS: METOPROLOL (XL) 100 MG TAB PO SCH (21:11)
[2018-08-27 02:00] VITALS: BP 157/95; PULSE 69; RESP 18
[2018-08-27] MEDS: GUAIFENESIN/DM 5ML CUP PO PRN ×4 (02:50→20:08)
[2018-08-27] MEDS: ACETAMINOPHEN 325 MG TAB PO PRN ×2 (02:51→10:07)
[2018-08-27] MEDS: CEFEPIME 1GM/50 ML (PMX) 50 ML IVPB SCH (05:14)
--- NOTE | 2018-08-27 05:59 | PN ---
Date/Time of Note Date/Time of Note DATE: 08/27/18 TIME: 05:58 Assessment/Plan VTE Prophylaxis Risk score (from Ns)>0 risk: 3 SCD applied (from Ns): Yes Pharmacological prophylaxis: NA/contraindicated Pharm contraindication: other (Anemia) Lines/Catheters IV C[facility] Type (from [facility]): Saline Lock Assessment/Plan Hospital Course SUBJECTIVE: Denies any complaints. OBJECTIVE: Physical Exam General: Adequately build 48 year-old male lying in bed in no apparent distress. HEENT: Normocephalic, atraumatic. Eyes: Anicteric sclerae, conjunctivae clear. ENT: Nasal septum midline, oral mucosa moist. Neck supple, no JVD noticed. Respiratory: Bilaterally diminished breath sounds. Cardiac: Regular rate and rhythm. Abdomen: Soft, nontender, and nondistended. Bowel sounds positive in all 4 quadrants. Genitourinary: Deferred. Extremities: No cyanosis, no clubbing, no edema. Peripheral pulses palpable. Neurologic: Cranial nerves II through XII grossly intact. The patient is awake, alert, and oriented. Skin: Normal skin turgor. No skin rashes. Labs & Vitals per chart ASSESSMENT & PLAN 48-year-old male with past medical history of hypertension, status post renal transplant in 2013, now dependent on hemodialysis who presents to the emergency room complaining of cough for over 1 week duration with subjective fevers. The patient's chest imaging was showing evidence of bilateral patchy perihilar infiltrates. The patient was admitted to inpatient setting for further treatment and evaluation. 1. Healthcare associated pneumonia. -Continue vancomycin plus cefepime. -Pancultures negative so far. -ID consult obtained. 2. Hypertension. -Continue antihypertensives. 3. End-stage renal disease on hemodialysis M/W/F. -Nephrology following. 4. Status post kidney transplant in 2013. -Nephrology following. 5. Normocytic anemia. -Stool for OB x1-. -Epogen will be deferred to nephrology. -PRBC transfusion ordered. -Continue iron supplements. 6. Fluids, electrolytes, and nutrition. -Renal diet. 7. DVT prophylaxis -Bilateral SCDs. 8. Plan. -Continue antimicrobials. -Await ID input. -Repeat CXR. -Await clinical improvement before discharging the patient home. The patient was seen in collaboration with Dr. Sinha. Result Diagram: 08/26/18 0518 08/26/18 0518 Results 24hrs Laboratory Tests Test 08/27/18 05:54 Lab Scanned Report BLOOD TRANSFUSION Exam/Review of Systems Exam Vitals Vital Signs Date Temp Pulse Resp B/P (MAP) Pulse Ox O2 O2 Flow FiO2 Time Delivery Rate 08/27/18 99.0 02:51 08/27/18 69 18 157/95 95 Room Air 02:00 (115) 08/26/18 21 17:58 Intake and Output 08/26/18 08/26/18 08/27/18 1515:00 23:00 07:00 IntakeIntake Total 220 ml 320 ml OutputOutput Total 2400 ml BalanceBalance -2180 ml 320 ml Results Results 24hrs Laboratory Tests Test 08/27/18 05:54 Lab Scanned Report BLOOD TRANSFUSION Medications Medication Current Medications IV Flush (NS 3 ml) 3 ml PER PROTOCOL IV ; Start 08/24/18 at 06:00 Ondansetron HCl (Zofran Inj) 4 mg Q6H PRN IV NAUSEA/VOMITING; Start 08/24/18 at 06:00 Acetaminophen (Tylenol Tab) 650 mg Q6H PRN PO .PAIN 1-3 OR TEMP Last administered on 08/27/18at 02:51; Admin Dose 650 MG; Start 08/24/18 at 06:00 Albuterol/ Ipratropium (Duoneb) 3 ml Q2H RESP THERAPY PRN HHN SHORTNESS OF BREATH Last administered on 08/26/18at 17:58; Admin Dose 3 ML; Start 08/24/18 at 06:00 Amlodipine Besylate (Norvasc) 10 mg DAILY PO Last administered on 08/25/18at 16:18; Admin Dose 10 MG; Start 08/24/18 at 09:00 Carvedilol (Coreg) 6.25 mg BID PO Last administered on 08/26/18 21:12; Admin Dose 6.25 MG; Start 08/24/18 at 09:00 Folic Acid (Folic Acid) 1 mg DAILY PO Last administered on 08/26/18 08:52; Admin Dose 1 MG; Start 08/24/18 at 09:00 Metoprolol Succinate (Toprol Xl) 100 mg QHS PO Last administered on 08/26/18at 21:11; Admin Dose 100 MG; Start 08/24/18 at 21:00 Cefepime HCl 50 ml @ 100 mls/hr Q24H IVPB Last administered on 08/27/18at 05:14; Admin Dose 100 MLS/HR; Start 08/25/18 at 06:00 Vancomycin HCl (Vanco Iv Per Pharmacy) VANCOMYCIN PER PHARMACY PER PROTOCOL XX ; Start 08/24/18 at 09:00 Sodium Chloride 1,000 ml @ 0 mls/hr Q0M PRN IV TO KEEP SBP ABOVE 90; Start 08/01 09/18 at 08:28 Sodium Chloride (NS) -To prime the dialy... DIRECTED FOR HD PRN IV HD; Start 08/25/18 at 08:30 Heparin Sodium (Porcine) (Heparin (1000 Units/ml)) 4,000 unit AFTER DIALYSIS CATHETER Last administered on 08/26/18at 13:22; Admin Dose 3,200 UNIT; Start 08/25/18 at 09:00 Sodium Chloride 1,000 ml @ 0 mls/hr Q0M PRN IV TO KEEP SBP ABOVE 90; Start 08/25/18 at 08:33 Sodium Chloride (NS) -To prime the dialy... DIRECTED FOR HD PRN IV HD; Start 08/25/18 at 09:00 Ferric Sodium Gluconate Complex 125 mg/Sodium Chloride 100 ml @ 100 mls/hr DAILY@1300 IVPB Last administered on 08/26/18at 13:40; Admin Dose 100 MLS/HR; Start 08/26/18 at 13:00; Stop 08/28/18 at 13:59 Guaifenesin/ Dextromethorphan (Robitussin Dm Liquid Cup) 5 ml Q4H PRN PO Cough Last administered on 08/27/18at 02:50; Admin Dose 5 ML; Start 08/25/18 at 14:00 Doxazosin Mesylate (Cardura) 2 mg BID PO Last administered on 08/26/18at 21:11; Admin Dose 2 MG; Start 08/25/18 at 21:00 Loperamide HCl (Imodium Cap) 2 mg GIVE IF INDICATED PRN PO DIARRHEA; Start 08/25/18 at 23:00 Epoetin Josh-epbx (Retacrit (Non-Esrd)) 10,000 unit MoWeFr@1700 SC Last administered on 08/26/18at 16:42; Admin Dose 10,000 UNIT; Start 08/26/18 at 17:00 Hydralazine HCl (Apresoline) 10 mg Q6H PRN IV SBP>160 Last administered on 08/26/18at 12:08; Admin Dose 10 MG; Start 08/26/18 at 12:00 BYRON NEGRETE NP August 27, 2018 05:59
[2018-08-27 07:57] VITALS: BP 158/88; PULSE 89; RESP 16
[2018-08-27] MEDS: FOLIC ACID 1 MG TAB PO SCH (08:12)
[2018-08-27] MEDS: AMLODIPINE 10 MG TAB PO SCH (08:13)
[2018-08-27] MEDS: DOXAZOSIN 2 MG TAB PO SCH ×2 (08:13→20:14)
[2018-08-27] MEDS: SOD FERRIC GLUC COMPLX 125 MG in SOD CHLORIDE 0.9% 100 ML IVPB SCH (12:37)
[2018-08-27] MEDS: ALBUTEROL/IPRATROPIUM (NEB) 3 ML AMP HHN PRN ×2 (12:53→22:03)
--- NOTE | 2018-08-27 14:09 | CONS ---
Assessment/Plan Assessment/Plan Hospital Course (Demo Recall) Patient is alert feels better looks comfortable. T-max 100 T-current 98.1 WBC 5.9 platelets 244 Microbiology: All cultures are negative Indwelling: Right chest permacath Antimicrobials: Vancomycin, cefepime Physical examination: Well-developed well-nourished middle-aged man who is alert in no distress head atraumatic normocephalic sclera nonicteric vehicle mucosa dry neck is supple chest rise symmetrical breath sounds diminished bases. Heart: S1-S2 abdomen soft bowel sounds present extremities without cyanosis Assessment: 1. Recurrent Healthcare associated pneumonia 2. End-stage renal disease, hemodialysis dependent 3. History of kidney transplant in 2013 4. Hypertension Plan: Patient is improving on current antibiotics, will follow chest x-ray in a.m. Consultation Date/Type/Reason Admit Date/Time August 25, 2018 at 13:25 Initial Consult Date Type of Consult id Date/Time of Note DATE: 08/27/18 TIME: 14:09 Exam/Review of Systems Exam Vitals Vital Signs Date Temp Pulse Resp B/P (MAP) Pulse Ox O2 O2 Flow FiO2 Time Delivery Rate 08/27/18 87 16 95 21 13:03 08/27/18 98.1 158/88 07:57 (111) 08/27/18 Room Air 02:00 Intake and Output 08/26/18 08/26/18 08/27/18 1515:00 23:00 07:00 IntakeIntake Total 220 ml 250 ml 370 ml OutputOutput Total 2400 ml BalanceBalance -2180 ml 250 ml 370 ml Results Result Diagram: 08/27/18 0608 08/27/18 0608 Results 24hrs Laboratory Tests Test 08/27/18 05:54 08/27/18 06:08 Lab Scanned Report BLOOD TRANSFUSION White Blood Count 5.9 Red Blood Count 2.64 L Hemoglobin 7.4 L Hematocrit 22.7 L Mean Corpuscular Volume 86.0 Mean Corpuscular Hemoglobin 28.0 L Mean Corpuscular Hemoglobin Concent 32.6 Red Cell Distribution Width 14.5 Platelet Count 244 Mean Platelet Volume 9.3 Immature Granulocytes % 0.700 H Neutrophils % 53.7 Lymphocytes % 18.0 Monocytes % 18.3 H Eosinophils % 7.8 H Basophils % 1.5 Nucleated Red Blood Cells % 0.0 Immature Granulocytes # 0.040 H Neutrophils # 3.2 Lymphocytes # 1.1 Monocytes # 1.1 H Eosinophils # 0.5 Basophils # 0.1 Nucleated Red Blood Cells # 0.0 Sodium Level 130 L Potassium Level 4.3 Chloride Level 96 L Carbon Dioxide Level 29 Anion Gap 5 Blood Urea Nitrogen 12 Creatinine 5.38 H Est Glomerular Filtrat Rate mL/min 12 L Glucose Level 90 Calcium Level 8.1 L Phosphorus Level 3.5 Magnesium Level 1.8 Procalcitonin 0.74 H HIV (1&2) Antibody NEGATIVE Medications Medication Current Medications IV Flush (NS 3 ml) 3 ml PER PROTOCOL IV ; Start 08/24/18 at 06:00 Ondansetron HCl (Zofran Inj) 4 mg Q6H PRN IV NAUSEA/VOMITING; Start 08/24/18 at 06:00 Acetaminophen (Tylenol Tab) 650 mg Q6H PRN PO .PAIN 1-3 OR TEMP Last administered on 08/27/18 10:07; Admin Dose 650 MG; Start 08/24/18 at 06:00 Albuterol/ Ipratropium (Duoneb) 3 ml Q2H RESP THERAPY PRN HHN SHORTNESS OF BREATH Last administered on 08/27/18 12:53; Admin Dose 3 ML; Start 08/24/18 at 06:00 Amlodipine Besylate (Norvasc) 10 mg DAILY PO Last administered on 08/27/18 08:13; Admin Dose 10 MG; Start 08/24/18 at 09:00 Carvedilol (Coreg) 6.25 mg BID PO Last administered on 08/27/18 08:13; Admin Dose 6.25 MG; Start 08/24/18 at 09:00 Folic Acid (Folic Acid) 1 mg DAILY PO Last administered on 08/27/18 08:12; Admin Dose 1 MG; Start 08/24/18 at 09:00 Metoprolol Succinate (Toprol Xl) 100 mg QHS PO Last administered on 08/26/18 21:11; Admin Dose 100 MG; Start 08/24/18 at 21:00 Cefepime HCl 50 ml @ 100 mls/hr Q24H IVPB Last administered on 08/27/18 05:14; Admin Dose 100 MLS/HR; Start 08/25/18 at 06:00 Vancomycin HCl (Vanco Iv Per Pharmacy) VANCOMYCIN PER PHARMACY PER PROTOCOL XX ; Start 08/24/18 at 09:00 Sodium Chloride 1,000 ml @ 0 mls/hr Q0M PRN IV TO KEEP SBP ABOVE 90; Start 08/25/18 at 08:28 Sodium Chloride (NS) -To prime the dialy... DIRECTED FOR HD PRN IV HD; Start 08/25/18 at 08:30 Heparin Sodium (Porcine) (Heparin (1000 Units/ml)) 4,000 unit AFTER DIALYSIS CATHETER Last administered on 08/26/18at 13:22; Admin Dose 3,200 UNIT; Start 08/25/18 at 09:00 Sodium Chloride 1,000 ml @ 0 mls/hr Q0M PRN IV TO KEEP SBP ABOVE 90; Start 08/25/18 at 08:33 Sodium Chloride (NS) -To prime the dialy... DIRECTED FOR HD PRN IV HD; Start 08/25/18 at 09:00 Ferric Sodium Gluconate Complex 125 mg/Sodium Chloride 100 ml @ 100 mls/hr DAILY@1300 IVPB Last administered on 08/27/18at 12:37; Admin Dose 100 MLS/HR; Start 08/26/18 at 13:00; Stop 08/28/18 at 13:59 Guaifenesin/ Dextromethorphan (Robitussin Dm Liquid Cup) 5 ml Q4H PRN PO Cough Last administered on 08/27/18at 08:13; Admin Dose 5 ML; Start 08/25/18 at 14:00 Doxazosin Mesylate (Cardura) 2 mg BID PO Last administered on 08/27/18 08:13; Admin Dose 2 MG; Start 08/25/18 at 21:00 Loperamide HCl (Imodium Cap) 2 mg GIVE IF INDICATED PRN PO DIARRHEA; Start 08/25/18 at 23:00 Epoetin Josh-epbx (Retacrit (Non-Esrd)) 10,000 unit MoWeFr@1700 SC Last administered on 08/26/18at 16:42; Admin Dose 10,000 UNIT; Start 08/26/18 at 17:00 Hydralazine HCl (Apresoline) 10 mg Q6H PRN IV SBP>160 Last administered on 08/26/18at 12:08; Admin Dose 10 MG; Start 08/26/18 at 12:00 PABLITO CASTILLO NP August 27, 2018 14:09
[2018-08-27 14:16] VITALS: BP 143/88; PULSE 96; RESP 16
--- NOTE | 2018-08-27 16:06 | CONS ---
Assessment/Plan Assessment/Plan Assessment/Plan ESRD , FAILED TRANSPLANT CONTINUE HD MWF COMMUNITY ACQUIRED PNEUMONIA, MILD HYPONATREMIA, HYPERTENSION ANEMIA POST TX, IV IRON AND EPOGEN HD 08/28/18 Consultation Date/Type/Reason Admit Date/Time August 25, 2018 at 13:25 Type of Consult Nephrology Date/Time of Note DATE: 08/27/18 TIME: 15:59 Hx of Present Illness OVERALL MUCH IMPROVED COUGH DECREASED, NO PHLEGM, APPETITE IMPROVED NORMAL Exam/Review of Systems Vital Signs Vitals Vital Signs Date Temp Pulse Resp B/P (MAP) Pulse Ox O2 O2 Flow FiO2 Time Delivery Rate 08/27/18 97.9 96 16 143/88 95 14:16 (106) 08/27/18 21 13:03 08/27/18 Room Air 02:00 Intake and Output 08/26/18 08/26/18 08/27/18 1515:00 23:00 07:00 IntakeIntake Total 220 ml 250 ml 370 ml OutputOutput Total 2400 ml BalanceBalance -2180 ml 250 ml 370 ml Exam Exam JVP NORMAL, CHEST CLEAR TO AUSCULTATION, CVS REGULAR, SOFT SYSTOLIC EJECTION MURMUR HEARD, ABDOMEN SOFT, LOWER EXTREMITIES NO EDEMA, AWAKE ALERT. Labs Result Diagram: 08/27/18 0608 08/27/18 0608 Results 24hrs Laboratory Tests Test 08/27/18 05:54 08/27/18 06:08 Lab Scanned Report BLOOD TRANSFUSION White Blood Count 5.9 Red Blood Count 2.64 L Hemoglobin 7.4 L Hematocrit 22.7 L Mean Corpuscular Volume 86.0 Mean Corpuscular Hemoglobin 28.0 L Mean Corpuscular Hemoglobin Concent 32.6 Red Cell Distribution Width 14.5 Platelet Count 244 Mean Platelet Volume 9.3 Immature Granulocytes % 0.700 H Neutrophils % 53.7 Lymphocytes % 18.0 Monocytes % 18.3 H Eosinophils % 7.8 H Basophils % 1.5 Nucleated Red Blood Cells % 0.0 Immature Granulocytes # 0.040 H Neutrophils # 3.2 Lymphocytes # 1.1 Monocytes # 1.1 H Eosinophils # 0.5 Basophils # 0.1 Nucleated Red Blood Cells # 0.0 Sodium Level 130 L Potassium Level 4.3 Chloride Level 96 L Carbon Dioxide Level 29 Anion Gap 5 Blood Urea Nitrogen 12 Creatinine 5.38 H Est Glomerular Filtrat Rate mL/min 12 L Glucose Level 90 Calcium Level 8.1 L Phosphorus Level 3.5 Magnesium Level 1.8 Procalcitonin 0.74 H HIV (1&2) Antibody NEGATIVE Medications Medications Current Medications IV Flush (NS 3 ml) 3 ml PER PROTOCOL IV ; Start 08/24/18 at 06:00 Ondansetron HCl (Zofran Inj) 4 mg Q6H PRN IV NAUSEA/VOMITING; Start 08/24/18 at 06:00 Acetaminophen (Tylenol Tab) 650 mg Q6H PRN PO .PAIN 1-3 OR TEMP Last administered on 08/27/18 10:07; Admin Dose 650 MG; Start 08/24/18 at 06:00 Albuterol/ Ipratropium (Duoneb) 3 ml Q2H RESP THERAPY PRN HHN SHORTNESS OF BREATH Last administered on 08/27/18 12:53; Admin Dose 3 ML; Start 08/24/18 at 06:00 Amlodipine Besylate (Norvasc) 10 mg DAILY PO Last administered on 08/27/18 08:13; Admin Dose 10 MG; Start 08/24/18 at 09:00 Carvedilol (Coreg) 6.25 mg BID PO Last administered on 08/27/18 08:13; Admin Dose 6.25 MG; Start 08/24/18 at 09:00 Folic Acid (Folic Acid) 1 mg DAILY PO Last administered on 08/27/18 08:12; Admin Dose 1 MG; Start 08/24/18 at 09:00 Metoprolol Succinate (Toprol Xl) 100 mg QHS PO Last administered on 08/26/18 21:11; Admin Dose 100 MG; Start 08/24/18 at 21:00 Cefepime HCl 50 ml @ 100 mls/hr Q24H IVPB Last administered on 08/27/18 05:14; Admin Dose 100 MLS/HR; Start 08/25/18 at 06:00 Vancomycin HCl (Vanco Iv Per Pharmacy) VANCOMYCIN PER PHARMACY PER PROTOCOL XX ; Start 08/24/18 at 09:00 Sodium Chloride 1,000 ml @ 0 mls/hr Q0M PRN IV TO KEEP SBP ABOVE 90; Start 08/25/18 at 08:28 Sodium Chloride (NS) -To prime the dialy... DIRECTED FOR HD PRN IV HD; Start 08/25/18 at 08:30 Heparin Sodium (Porcine) (Heparin (1000 Units/ml)) 4,000 unit AFTER DIALYSIS CATHETER Last administered on 08/26/18 13:22; Admin Dose 3,200 UNIT; Start 08/25/18 at 09:00 Sodium Chloride 1,000 ml @ 0 mls/hr Q0M PRN IV TO KEEP SBP ABOVE 90; Start 08/25/18 at 08:33 Sodium Chloride (NS) -To prime the dialy... DIRECTED FOR HD PRN IV HD; Start 08/25/18 at 09:00 Ferric Sodium Gluconate Complex 125 mg/Sodium Chloride 100 ml @ 100 mls/hr DAILY@1300 IVPB Last administered on 08/27/18 12:37; Admin Dose 100 MLS/HR; Start 08/26/18 at 13:00; Stop 08/28/18 at 13:59 Guaifenesin/ Dextromethorphan (Robitussin Dm Liquid Cup) 5 ml Q4H PRN PO Cough Last administered on 08/27/18at 15:56; Admin Dose 5 ML; Start 08/25/18 at 14:00 Doxazosin Mesylate (Cardura) 2 mg BID PO Last administered on 08/27/18at 08:13; Admin Dose 2 MG; Start 08/25/18 at 21:00 Loperamide HCl (Imodium Cap) 2 mg GIVE IF INDICATED PRN PO DIARRHEA; Start 08/25/18 at 23:00 Epoetin Josh-epbx (Retacrit (Non-Esrd)) 10,000 unit MoWeFr@1700 SC Last administered on 08/26/18at 16:42; Admin Dose 10,000 UNIT; Start 08/26/18 at 17:00 Hydralazine HCl (Apresoline) 10 mg Q6H PRN IV SBP>160 Last administered on 08/26/18at 12:08; Admin Dose 10 MG; Start 08/26/18 at 12:00 GEORGES ALICEA MD August 27, 2018 16:06
[2018-08-27 20:00] VITALS: BP 154/87; PULSE 111; RESP 18
[2018-08-27] MEDS: METOPROLOL (XL) 100 MG TAB PO SCH (20:14)
[2018-08-27] MEDS ORDERED: SOD CHLORIDE 0.9% 1,000 ML IV PRN (21:10)
[2018-08-27] MEDS ORDERED: HEPARIN 1000 UNITS/ML 10 ML INJ CATHETER SCH (21:30)
[2018-08-27] MEDS ORDERED: SODIUM CHLORIDE 0.9% 1L BAG IV PRN (21:30)
[2018-08-28] MEDS: GUAIFENESIN/DM 5ML CUP PO PRN ×5 (00:02→20:59)
[2018-08-28] MEDS: ACETAMINOPHEN 325 MG TAB PO PRN (01:28)
[2018-08-28 02:00] VITALS: BP 147/85; PULSE 99; RESP 18
[2018-08-28] MEDS: CEFEPIME 1GM/50 ML (PMX) 50 ML IVPB SCH (05:20)
[2018-08-28 08:00] VITALS: BP 155/87; PULSE 86; RESP 16
[2018-08-28] MEDS: DOXAZOSIN 2 MG TAB PO SCH ×2 (09:00→21:00)
[2018-08-28] MEDS: AMLODIPINE 10 MG TAB PO SCH (09:00)
[2018-08-28] MEDS: FOLIC ACID 1 MG TAB PO SCH (09:37)
--- NOTE | 2018-08-28 10:33 | CONS ---
Assessment/Plan Assessment/Plan Assessment/Plan (Daily) Assessment and recommendations; 1. Patient admitted with combination of CHF as well as superimposed pneumonia, currently on appropriate antimicrobial regimen with significant improvement in symptoms. 2. Chronic renal failure, on hemodialysis. 3. History of renal transplant with failure. 4. Hypertension. 5. Mild anemia. Continue current supportive care. Obtain follow-up chest x-ray in 48 hours. Consultation Date/Type/Reason Admit Date/Time August 25, 2018 at 13:25 Date of Consultation: August 28, 2018 Type of Consult Pulmonary Patient is a pleasant 48-year-old male who was admitted on the of this month with a one-week history of increasing chest congestion and cough. Patient also was admitted at [facility] for 3 days with similar symptoms and was discharged home. Patient denies any chest pain, wheezing, any sputum production. Denies any fever or chills. According to him he is feeling much be tter since admission. Denies any abdominal pain, nausea vomiting. Past medical history; 1. History of chronic renal failure, hemodialysis dependent. 2. History of renal transplant in 2013, now on hemodialysis. 3. CHF. 4. History of hypertension. 5. Chronic anemia. 6. Recent admission at another facility for similar symptoms. Medications; reviewed. Allergies; none. Social history; patient is a non-smoker, no history of any alcohol or drug abuse. Family history; he is single. No children. Occupational history; patient is on disability. Review of systems; denies any headache, visual changes, sore throat. Any chest pain, angina, wheezing. Shortness of breath is markedly improved. Complains of very minimal cough. Denies any sputum production or hemoptysis. Denies any fever or chills. Denies any abdominal pain, nausea vomiting. Any melena hematochezia. Any weight change. Any edema. Denies any dysphagia. General exam; middle-aged male, awake alert, currently no distress. Date/Time of Note DATE: 08/28/18 TIME: 10:29 Past Medical History Home Meds Reported Medications Guaifenesin/Dextromethorphan (Mucinex Dm ER 1,200-60 mg Tab) 1 Each Tbmp.12hr, 1 EACH PO, TAB 08/24/18 [Nyquil] No Conflict Check, 30 ML 08/24/18 Azithromycin* (Azithromycin*) 250 Mg Tablet, 500 MG PO ONCE for 1 Day, #1 TAB 08/24/18 Amoxicillin/Potassium Clav (Amox-Clav 500-125 mg Tablet) 500-125 mg Tab, 1 TAB PO DAILY for 5 Days, TAB 08/24/18 Losartan Potassium* (Losartan Potassium*) 50 Mg Tablet, 50 MG PO BID, TAB 08/24/18 Amlodipine Besylate* (Amlodipine Besylate*) 10 Mg Tablet, 10 MG PO DAILY for 30 Days, #30 08/24/18 Metoprolol Succinate* (Toprol XL*) 100 Mg Tab.sr.24h, 100 MG PO QHS for 30 Days, #30 08/24/18 Carvedilol* (Carvedilol*) 6.25 Mg Tablet, 6.25 MG PO BID for 30 Days, #60 08/24/18 Folic Acid* (Folic Acid*) 1 Mg Tablet, 1 MG PO DAILY for 30 Days, #30 08/24/18 Medications Current Medications IV Flush (NS 3 ml) 3 ml PER PROTOCOL IV ; Start 08/24/18 at 06:00 Ondansetron HCl (Zofran Inj) 4 mg Q6H PRN IV NAUSEA/VOMITING; Start 08/24/18 at 06:00 Acetaminophen (Tylenol Tab) 650 mg Q6H PRN PO .PAIN 1-3 OR TEMP Last administered on 08/28/18at 01:28; Admin Dose 650 MG; Start 08/24/18 at 06:00 Albuterol/ Ipratropium (Duoneb) 3 ml Q2H RESP THERAPY PRN HHN SHORTNESS OF BREATH Last administered on 08/27/18at 22:03; Admin Dose 3 ML; Start 08/24/18 at 06:00 Amlodipine Besylate (Norvasc) 10 mg DAILY PO Last administered on 08/27/18at 08:13; Admin Dose 10 MG; Start 08/24/18 at 09:00 Carvedilol (Coreg) 6.25 mg BID PO Last administered on 08/27/18at 20:14; Admin Dose 6.25 MG; Start 08/24/18 at 09:00 Folic Acid (Folic Acid) 1 mg DAILY PO Last administered on 08/28/18at 09:37; Admin Dose 1 MG; Start 08/24/18 at 09:00 Metoprolol Succinate (Toprol Xl) 100 mg QHS PO Last administered on 08/27/18at 20:14; Admin Dose 100 MG; Start 08/24/18 at 21:00 Cefepime HCl 50 ml @ 100 mls/hr Q24H IVPB Last administered on 08/28/18at 05:20; Admin Dose 100 MLS/HR; Start 08/25/18 at 06:00 Vancomycin HCl (Vanco Iv Per Pharmacy) VANCOMYCIN PER PHARMACY PER PROTOCOL XX ; Start 08/24/18 at 09:00 Sodium Chloride 1,000 ml @ 0 mls/hr Q0M PRN IV TO KEEP SBP ABOVE 90; Start 08/25/18 at 08:28 Sodium Chloride (NS) -To prime the dialy... DIRECTED FOR HD PRN IV HD; Start 08/25/18 at 08:30 Heparin Sodium (Porcine) (Heparin (1000 Units/ml)) 4,000 unit AFTER DIALYSIS CATHETER Last administered on 08/26/18at 13:22; Admin Dose 3,200 UNIT; Start 08/25/18 at 09:00 Sodium Chloride 1,000 ml @ 0 mls/hr Q0M PRN IV TO KEEP SBP ABOVE 90; Start 08/25/18 at 08:33 Sodium Chloride (NS) -To prime the dialy... DIRECTED FOR HD PRN IV HD; Start 08/25/18 at 09:00 Ferric Sodium Gluconate Complex 125 mg/Sodium Chloride 100 ml @ 100 mls/hr DAILY@1300 IVPB Last administered on 08/27/18at 12:37; Admin Dose 100 MLS/HR; Start 08/26/18 at 13:00; Stop 08/28/18 at 13:59 Guaifenesin/ Dextromethorphan (Robitussin Dm Liquid Cup) 5 ml Q4H PRN PO Cough Last administered on 08/28/18at 09:42; Admin Dose 5 ML; Start 08/25/18 at 14:00 Doxazosin Mesylate (Cardura) 2 mg BID PO Last administered on 08/27/18at 20:14; Admin Dose 2 MG; Start 08/25/18 at 21:00 Loperamide HCl (Imodium Cap) 2 mg GIVE IF INDICATED PRN PO DIARRHEA; Start 08/25/18 at 23:00 Epoetin Josh-epbx (Retacrit (Non-Esrd)) 10,000 unit MoWeFr@1700 SC Last administered on 08/26/18at 16:42; Admin Dose 10,000 UNIT; Start 08/26/18 at 17:00 Hydralazine HCl (Apresoline) 10 mg Q6H PRN IV SBP>160 Last administered on 08/26/18at 12:08; Admin Dose 10 MG; Start 08/26/18 at 12:00 Heparin Sodium (Porcine) (Heparin (1000 Units/ml)) 4,000 unit AFTER DIALYSIS CATHETER ; Start 08/27/18 at 21:30 Sodium Chloride 1,000 ml @ 0 mls/hr Q0M PRN IV TO KEEP SBP ABOVE 90; Start 08/27/18 at 21:10 Sodium Chloride (NS) -To prime the dialy... DIRECTED FOR HD PRN IV HD; Start 08/27/18 at 21:30 Miscellaneous Information (*Rx Drug Level Order Reminder*) RANDOM VANCO LEVEL 5... 0500 ONCE XX ; Start 08/29/18 at 05:00; Stop 08/29/18 at 05:01 Allergies: Coded Allergies: No Known Allergy (Unverified , 08/24/18) Past Surgical History Past Surgical Hx: other (Access placem[employer] for HD) Social History Alcohol Use: none Smoking Status: Never smoker Exam/Review of Systems Exam Vitals Vital Signs Date Temp Pulse Resp B/P (MAP) Pulse Ox O2 O2 Flow FiO2 Time Delivery Rate 08/28/18 98.2 86 16 155/87 96 08:00 (109) 08/27/18 21 22:03 08/27/18 Room Air 02:00 Intake and Output 08/27/18 08/27/18 08/28/18 1414:59 22:59 06:59 IntakeIntake Total 220 ml 1000 ml 50 ml BalanceBalance 220 ml 1000 ml 50 ml Exam H EENT exam; supple neck, positive JVD. No lymphadenopathy. Midline trachea. No thyromegaly. Pharynx is clear. Patient has fair dentition. No neck masses. Pupils are small bilaterally. Chest exam; diminished but clear breath sounds. S1-S2 audible, no murmurs. Regular rhythm. Abdomen exam; soft, protuberant. No organomegaly. Bowel sounds audible. Extremity exam; no peripheral edema clubbing. 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 Results Result Diagram: 08/28/18 0427 08/28/18 0427 Results 24hrs Laboratory Tests Test 08/28/18 04:27 White Blood Count 6.2 Red Blood Count 2.71 L Hemoglobin 7.6 L Hematocrit 23.0 L Mean Corpuscular Volume 84.9 Mean Corpuscular Hemoglobin 28.0 L Mean Corpuscular Hemoglobin Concent 33.0 Red Cell Distribution Width 14.3 Platelet Count 280 Mean Platelet Volume 9.6 Immature Granulocytes % 0.600 H Neutrophils % 53.0 Lymphocytes % 19.0 Monocytes % 18.0 H Eosinophils % 8.1 H Basophils % 1.3 Nucleated Red Blood Cells % 0.0 Immature Granulocytes # 0.040 H Neutrophils # 3.3 Lymphocytes # 1.2 Monocytes # 1.1 H Eosinophils # 0.5 Basophils # 0.1 Nucleated Red Blood Cells # 0.0 Sodium Level 126 L Potassium Level 4.8 Chloride Level 92 L Carbon Dioxide Level 26 Anion Gap 8 Blood Urea Nitrogen 19 Creatinine 7.58 #H Est Glomerular Filtrat Rate mL/min 8 L Glucose Level 83 Calcium Level 7.8 L Phosphorus Level 3.8 Magnesium Level 1.9 Medications Medication Current Medications IV Flush (NS 3 ml) 3 ml PER PROTOCOL IV ; Start 08/24/18 at 06:00 Ondansetron HCl (Zofran Inj) 4 mg Q6H PRN IV NAUSEA/VOMITING; Start 08/24/18 at 06:00 Acetaminophen (Tylenol Tab) 650 mg Q6H PRN PO .PAIN 1-3 OR TEMP Last administered on 08/28/18at 01:28; Admin Dose 650 MG; Start 08/24/18 at 06:00 Albuterol/ Ipratropium (Duoneb) 3 ml Q2H RESP THERAPY PRN HHN SHORTNESS OF BREATH Last administered on 08/27/18at 22:03; Admin Dose 3 ML; Start 08/24/18 at 06:00 Amlodipine Besylate (Norvasc) 10 mg DAILY PO Last administered on 08/27/18at 08:13; Admin Dose 10 MG; Start 08/24/18 at 09:00 Carvedilol (Coreg) 6.25 mg BID PO Last administered on 08/27/18at 20:14; Admin Dose 6.25 MG; Start 08/24/18 at 09:00 Folic Acid (Folic Acid) 1 mg DAILY PO Last administered on 08/28/18 09:37; Admin Dose 1 MG; Start 08/24/18 at 09:00 Metoprolol Succinate (Toprol Xl) 100 mg QHS PO Last administered on 08/27/18 20:14; Admin Dose 100 MG; Start 08/24/18 at 21:00 Cefepime HCl 50 ml @ 100 mls/hr Q24H IVPB Last administered on 08/28/18 05:20; Admin Dose 100 MLS/HR; Start 08/25/18 at 06:00 Vancomycin HCl (Vanco Iv Per Pharmacy) VANCOMYCIN PER PHARMACY PER PROTOCOL XX ; Start 08/24/18 at 09:00 Sodium Chloride 1,000 ml @ 0 mls/hr Q0M PRN IV TO KEEP SBP ABOVE 90; Start 08/25/18 at 08:28 Sodium Chloride (NS) -To prime the dialy... DIRECTED FOR HD PRN IV HD; Start 08/25/18 at 08:30 Heparin Sodium (Porcine) (Heparin (1000 Units/ml)) 4,000 unit AFTER DIALYSIS CATHETER Last administered on 08/26/18at 13:22; Admin Dose 3,200 UNIT; Start 08/25/18 at 09:00 Sodium Chloride 1,000 ml @ 0 mls/hr Q0M PRN IV TO KEEP SBP ABOVE 90; Start 08/25/18 at 08:33 Sodium Chloride (NS) -To prime the dialy... DIRECTED FOR HD PRN IV HD; Start 08/25/18 at 09:00 Ferric Sodium Gluconate Complex 125 mg/Sodium Chloride 100 ml @ 100 mls/hr DAILY@1300 IVPB Last administered on 08/27/18at 12:37; Admin Dose 100 MLS/HR; Start 08/26/18 at 13:00; Stop 08/28/18 at 13:59 Guaifenesin/ Dextromethorphan (Robitussin Dm Liquid Cup) 5 ml Q4H PRN PO Cough Last administered on 08/28/18 09:42; Admin Dose 5 ML; Start 08/25/18 at 14:00 Doxazosin Mesylate (Cardura) 2 mg BID PO Last administered on 08/27/18at 20:14; Admin Dose 2 MG; Start 08/25/18 at 21:00 Loperamide HCl (Imodium Cap) 2 mg GIVE IF INDICATED PRN PO DIARRHEA; Start 08/25/18 at 23:00 Epoetin Josh-epbx (Retacrit (Non-Esrd)) 10,000 unit MoWeFr@1700 SC Last administered on 08/26/18at 16:42; Admin Dose 10,000 UNIT; Start 08/26/18 at 17:00 Hydralazine HCl (Apresoline) 10 mg Q6H PRN IV SBP>160 Last administered on 08/26/18at 12:08; Admin Dose 10 MG; Start 08/26/18 at 12:00 Heparin Sodium (Porcine) (Heparin (1000 Units/ml)) 4,000 unit AFTER DIALYSIS CATHETER ; Start 08/27/18 at 21:30 Sodium Chloride 1,000 ml @ 0 mls/hr Q0M PRN IV TO KEEP SBP ABOVE 90; Start 08/27/18 at 21:10 Sodium Chloride (NS) -To prime the dialy... DIRECTED FOR HD PRN IV HD; Start 08/27/18 at 21:30 Miscellaneous Information (*Rx Drug Level Order Reminder*) RANDOM VANCO LEVEL 5 ... 0500 ONCE XX ; Start 08/29/18 at 05:00; Stop 08/29/18 at 05:01 MICHAEL SAEZ August 28, 2018 10:33
[2018-08-28] MEDS: SOD FERRIC GLUC COMPLX 125 MG in SOD CHLORIDE 0.9% 100 ML IVPB SCH (12:25)
--- NOTE | 2018-08-28 12:48 | CONS ---
Assessment/Plan Assessment/Plan Hospital Course (Demo Recall) Patient is alert sitting up in a chair feels better no fevers overnight WBC 6.2 platelets 280 neutrophils 53 Microbiology: All cultures are negative Indwelling: Right chest permacath Antimicrobials: Vancomycin, cefepime Physical examination: Well-developed well-nourished middle-aged man who is alert in no distress head atraumatic normocephalic sclera nonicteric vehicle mucosa dry neck is supple chest rise symmetrical breath sounds diminished bases. Heart: S1-S2 abdomen soft bowel sounds present extremities without cyanosis Assessment: 1. Recurrent Healthcare associated pneumonia 2. End-stage renal disease, hemodialysis dependent 3. History of kidney transplant in 2013 4. Hypertension Plan: Continues to improve on current antibiotics Consultation Date/Type/Reason Admit Date/Time August 25, 2018 at 13:25 Initial Consult Date Type of Consult id Date/Time of Note DATE: 08/28/18 TIME: 12:47 Exam/Review of Systems Exam Vitals Vital Signs Date Temp Pulse Resp B/P (MAP) Pulse Ox O2 O2 Flow FiO2 Time Delivery Rate 08/28/18 98.2 86 16 155/87 96 08:00 (109) 08/27/18 21 22:03 08/27/18 Room Air 02:00 Intake and Output 08/27/18 08/27/18 08/28/18 1515:00 23:00 07:00 IntakeIntake Total 220 ml 1000 ml 50 ml BalanceBalance 220 ml 1000 ml 50 ml Results Result Diagram: 08/28/18 0427 08/28/18 0427 Results 24hrs Laboratory Tests Test 08/28/18 04:27 White Blood Count 6.2 Red Blood Count 2.71 L Hemoglobin 7.6 L Hematocrit 23.0 L Mean Corpuscular Volume 84.9 Mean Corpuscular Hemoglobin 28.0 L Mean Corpuscular Hemoglobin Concent 33.0 Red Cell Distribution Width 14.3 Platelet Count 280 Mean Platelet Volume 9.6 Immature Granulocytes % 0.600 H Neutrophils % 53.0 Lymphocytes % 19.0 Monocytes % 18.0 H Eosinophils % 8.1 H Basophils % 1.3 Nucleated Red Blood Cells % 0.0 Immature Granulocytes # 0.040 H Neutrophils # 3.3 Lymphocytes # 1.2 Monocytes # 1.1 H Eosinophils # 0.5 Basophils # 0.1 Nucleated Red Blood Cells # 0.0 Sodium Level 126 L Potassium Level 4.8 Chloride Level 92 L Carbon Dioxide Level 26 Anion Gap 8 Blood Urea Nitrogen 19 Creatinine 7.58 #H Est Glomerular Filtrat Rate mL/min 8 L Glucose Level 83 Calcium Level 7.8 L Phosphorus Level 3.8 Magnesium Level 1.9 Medications Medication Current Medications IV Flush (NS 3 ml) 3 ml PER PROTOCOL IV ; Start 08/24/18 at 06:00 Ondansetron HCl (Zofran Inj) 4 mg Q6H PRN IV NAUSEA/VOMITING; Start 08/24/18 at 06:00 Acetaminophen (Tylenol Tab) 650 mg Q6H PRN PO .PAIN 1-3 OR TEMP Last administered on 08/28/18at 01:28; Admin Dose 650 MG; Start 08/24/18 at 06:00 Albuterol/ Ipratropium (Duoneb) 3 ml Q2H RESP THERAPY PRN HHN SHORTNESS OF BREATH Last administered on 08/27/18at 22:03; Admin Dose 3 ML; Start 08/24/18 at 06:00 Amlodipine Besylate (Norvasc) 10 mg DAILY PO Last administered on 08/27/18at 08:13; Admin Dose 10 MG; Start 08/24/18 at 09:00 Carvedilol (Coreg) 6.25 mg BID PO Last administered on 08/27/18at 20:14; Admin Dose 6.25 MG; Start 08/24/18 at 09:00 Folic Acid (Folic Acid) 1 mg DAILY PO Last administered on 08/28/18at 09:37; Admin Dose 1 MG; Start 08/24/18 at 09:00 Metoprolol Succinate (Toprol Xl) 100 mg QHS PO Last administered on 08/27/18at 20:14; Admin Dose 100 MG; Start 08/24/18 at 21:00 Cefepime HCl 50 ml @ 100 mls/hr Q24H IVPB Last administered on 08/28/18at 05:20; Admin Dose 100 MLS/HR; Start 08/25/18 at 06:00 Vancomycin HCl (Vanco Iv Per Pharmacy) VANCOMYCIN PER PHARMACY PER PROTOCOL XX ; Start 08/24/18 at 09:00 Sodium Chloride 1,000 ml @ 0 mls/hr Q0M PRN IV TO KEEP SBP ABOVE 90; Start 08/25/18 at 08:28 Sodium Chloride (NS) -To prime the dialy... DIRECTED FOR HD PRN IV HD; Start 08/25/18 at 08:30 Heparin Sodium (Porcine) (Heparin (1000 Units/ml)) 4,000 unit AFTER DIALYSIS CATHETER Last administered on 08/26/18 13:22; Admin Dose 3,200 UNIT; Start 08/25/18 at 09:00 Sodium Chloride 1,000 ml @ 0 mls/hr Q0M PRN IV TO KEEP SBP ABOVE 90; Start 08/25/18 at 08:33 Sodium Chloride (NS) -To prime the dialy... DIRECTED FOR HD PRN IV HD; Start 08/25/18 at 09:00 Ferric Sodium Gluconate Complex 125 mg/Sodium Chloride 100 ml @ 100 mls/hr DAILY@1300 IVPB Last administered on 08/28/18 12:25; Admin Dose 100 MLS/HR; Start 08/26/18 at 13:00; Stop 08/28/18 at 13:59 Guaifenesin/ Dextromethorphan (Robitussin Dm Liquid Cup) 5 ml Q4H PRN PO Cough Last administered on 08/28/18 09:42; Admin Dose 5 ML; Start 08/25/18 at 14:00 Doxazosin Mesylate (Cardura) 2 mg BID PO Last administered on 08/27/18at 20:14; Admin Dose 2 MG; Start 08/25/18 at 21:00 Loperamide HCl (Imodium Cap) 2 mg GIVE IF INDICATED PRN PO DIARRHEA; Start 08/25/18 at 23:00 Epoetin Josh-epbx (Retacrit (Non-Esrd)) 10,000 unit MoWeFr@1700 SC Last ad ministered on 08/26/18at 16:42; Admin Dose 10,000 UNIT; Start 08/26/18 at 17:00 Hydralazine HCl (Apresoline) 10 mg Q6H PRN IV SBP>160 Last administered on 08/26/18at 12:08; Admin Dose 10 MG; Start 08/26/18 at 12:00 Heparin Sodium (Porcine) (Heparin (1000 Units/ml)) 4,000 unit AFTER DIALYSIS CATHETER ; Start 08/27/18 at 21:30 Sodium Chloride 1,000 ml @ 0 mls/hr Q0M PRN IV TO KEEP SBP ABOVE 90; Start 08/27/18 at 21:10 Sodium Chloride (NS) -To prime the dialy... DIRECTED FOR HD PRN IV HD; Start 08/27/18 at 21:30 Miscellaneous Information (*Rx Drug Level Order Reminder*) RANDOM VANCO LEVEL 5... 0500 ONCE XX ; Start 08/29/18 at 05:00; Stop 08/29/18 at 05:01 PABLITO CASTILLO NP August 28, 2018 12:48
[2018-08-28] MEDS: ALBUTEROL/IPRATROPIUM (NEB) 3 ML AMP HHN PRN (13:25)
--- NOTE | 2018-08-28 13:56 | CONS ---
Assessment/Plan Assessment/Plan Assessment/Plan esrd hd pending today anemia iron deficiency, continue iv iron and epogen bl lung infiltrates cultures negative, eosinophilia etiology ?on vancomycin and cefepime hyponatremia acute ? due to pneumonia hypertension stable to mildly elevated Consultation Date/Type/Reason Admit Date/Time August 25, 2018 at 13:25 Type of Consult Nephrology Date/Time of Note DATE: 08/28/18 TIME: 13:49 Hx of Present Illness no change in overall condition. voices no complaints. no shortness of breath jvp normal chest clear cvs regular abdomen soft supple lower extremities no edema Exam/Review of Systems Vital Signs Vitals Vital Signs Date Temp Pulse Resp B/P (MAP) Pulse Ox O2 O2 Flow FiO2 Time Delivery Rate 08/28/18 88 16 21 13:26 08/28/18 98.2 155/87 96 08:00 (109) 08/27/18 Room Air 02:00 Intake and Output 08/27/18 08/27/18 08/28/18 1515:00 23:00 07:00 IntakeIntake Total 220 ml 1000 ml 50 ml BalanceBalance 220 ml 1000 ml 50 ml Labs Result Diagram: 08/28/18 0427 08/28/18 0427 Results 24hrs Laboratory Tests Test 08/28/18 04:27 White Blood Count 6.2 Red Blood Count 2.71 L Hemoglobin 7.6 L Hematocrit 23.0 L Mean Corpuscular Volume 84.9 Mean Corpuscular Hemoglobin 28.0 L Mean Corpuscular Hemoglobin Concent 33.0 Red Cell Distribution Width 14.3 Platelet Count 280 Mean Platelet Volume 9.6 Immature Granulocytes % 0.600 H Neutrophils % 53.0 Lymphocytes % 19.0 Monocytes % 18.0 H Eosinophils % 8.1 H Basophils % 1.3 Nucleated Red Blood Cells % 0.0 Immature Granulocytes # 0.040 H Neutrophils # 3.3 Lymphocytes # 1.2 Monocytes # 1.1 H Eosinophils # 0.5 Basophils # 0.1 Nucleated Red Blood Cells # 0.0 Sodium Level 126 L Potassium Level 4.8 Chloride Level 92 L Carbon Dioxide Level 26 Anion Gap 8 Blood Urea Nitrogen 19 Creatinine 7.58 #H Est Glomerular Filtrat Rate mL/min 8 L Glucose Level 83 Calcium Level 7.8 L Phosphorus Level 3.8 Magnesium Level 1.9 Medications Medications Current Medications IV Flush (NS 3 ml) 3 ml PER PROTOCOL IV ; Start 08/24/18 at 06:00 Ondansetron HCl (Zofran Inj) 4 mg Q6H PRN IV NAUSEA/VOMITING; Start 08/24/18 at 06:00 Acetaminophen (Tylenol Tab) 650 mg Q6H PRN PO .PAIN 1-3 OR TEMP Last administered on 08/28/18 01:28; Admin Dose 650 MG; Start 08/24/18 at 06:00 Albuterol/ Ipratropium (Duoneb) 3 ml Q2H RESP THERAPY PRN HHN SHORTNESS OF BREATH Last administered on 08/28/18 13:25; Admin Dose 3 ML; Start 08/24/18 at 06:00 Amlodipine Besylate (Norvasc) 10 mg DAILY PO Last administered on 08/27/18 08:13; Admin Dose 10 MG; Start 08/24/18 at 09:00 Carvedilol (Coreg) 6.25 mg BID PO Last administered on 08/27/18 20:14; Admin Dose 6.25 MG; Start 08/24/18 at 09:00 Folic Acid (Folic Acid) 1 mg DAILY PO Last administered on 08/28/18 09:37; Admin Dose 1 MG; Start 08/24/18 at 09:00 Metoprolol Succinate (Toprol Xl) 100 mg QHS PO Last administered on 08/27/18 20:14; Admin Dose 100 MG; Start 08/24/18 at 21:00 Cefepime HCl 50 ml @ 100 mls/hr Q24H IVPB Last administered on 08/28/18 05:20; Admin Dose 100 MLS/HR; Start 08/25/18 at 06:00 Vancomycin HCl (Vanco Iv Per Pharmacy) VANCOMYCIN PER PHARMACY PER PROTOCOL XX ; Start 08/24/18 at 09:00 Sodium Chloride 1,000 ml @ 0 mls/hr Q0M PRN IV TO KEEP SBP ABOVE 90; Start 08/25/18 at 08:28 Sodium Chloride (NS) -To prime the dialy... DIRECTED FOR HD PRN IV HD; Start 08/25/18 at 08:30 Heparin Sodium (Porcine) (Heparin (1000 Units/ml)) 4,000 unit AFTER DIALYSIS CATHETER Last administered on 08/26/18 13:22; Admin Dose 3,200 UNIT; Start 08/25/18 at 09:00 Sodium Chloride 1,000 ml @ 0 mls/hr Q0M PRN IV TO KEEP SBP ABOVE 90; Start 08/25/18 at 08:33 Sodium Chloride (NS) -To prime the dialy... DIRECTED FOR HD PRN IV HD; Start 08/25/18 at 09:00 Ferric Sodium Gluconate Complex 125 mg/Sodium Chloride 100 ml @ 100 mls/hr DAILY@1300 IVPB Last administered on 08/28/18at 12:25; Admin Dose 100 MLS/HR; Start 08/26/18 at 13:00; Stop 08/28/18 at 13:59 Guaifenesin/ Dextromethorphan (Robitussin Dm Liquid Cup) 5 ml Q4H PRN PO Cough Last administered on 08/28/18at 09:42; Admin Dose 5 ML; Start 08/25/18 at 14:00 Doxazosin Mesylate (Cardura) 2 mg BID PO Last administered on 08/27/18at 20:14; Admin Dose 2 MG; Start 08/25/18 at 21:00 Loperamide HCl (Imodium Cap) 2 mg GIVE IF INDICATED PRN PO DIARRHEA; Start 08/25/18 at 23:00 Epoetin Josh-epbx (Retacrit (Non-Esrd)) 10,000 unit MoWeFr@1700 SC Last administered on 08/26/18at 16:42; Admin Dose 10,000 UNIT; Start 08/26/18 at 17:00 Hydralazine HCl (Apresoline) 10 mg Q6H PRN IV SBP>160 Last administered on 08/26/18at 12:08; Admin Dose 10 MG; Start 08/26/18 at 12:00 Heparin Sodium (Porcine) (Heparin (1000 Units/ml)) 4,000 unit AFTER DIALYSIS CATHETER ; Start 08/27/18 at 21:30 Sodium Chloride 1,000 ml @ 0 mls/hr Q0M PRN IV TO KEEP SBP ABOVE 90; Start 08/27/18 at 21:10 Sodium Chloride (NS) -To prime the dialy... DIRECTED FOR HD PRN IV HD; Start 08/27/18 at 21:30 Miscellaneous Information (*Rx Drug Level Order Reminder*) RANDOM VANCO LEVEL 5... 0500 ONCE XX ; Start 08/29/18 at 05:00; Stop 08/29/18 at 05:01 GEORGES ALICEA MD August 28, 2018 13:56
--- NOTE | 2018-08-28 14:08 | PN ---
Date/Time of Note Date/Time of Note DATE: 08/28/18 TIME: 14:07 Assessment/Plan VTE Prophylaxis Risk score (from Ns)>0 risk: 3 [place] [facility] [place] contraindicated: other Pharmacological prophylaxis: NA/contraindicated Pharm contraindication: other (Anemia.) Lines/Catheters [facility] Peripheral IV Assessment/Plan Hospital Course SUBJECTIVE: Continue to complains of cough. OBJECTIVE: Physical Exam General: Adequately build 48 year-old male lying in bed in no apparent distress. HEENT: Normocephalic, atraumatic. Eyes: Anicteric sclerae, conjunctivae clear. ENT: Nasal septum midline, oral mucosa moist. Neck supple, no JVD noticed. Respiratory: Bilaterally diminished breath sounds. Cardiac: Regular rate and rhythm. Abdomen: Soft, nontender, and nondistended. Bowel sounds positive in all 4 quadrants. Genitourinary: Deferred. Extremities: No cyanosis, no clubbing, no edema. Peripheral pulses palpable. Neurologic: Cranial nerves II through XII grossly intact. The patient is awake, alert, and oriented. Skin: Normal skin turgor. No skin rashes. Labs & Vitals per chart ASSESSMENT & PLAN 48-year-old male with past medical history of hypertension, status post renal transplant in 2013, now dependent on hemodialysis who presents to the emergency room complaining of cough for over 1 week duration with subjective fevers. The patient's chest imaging was showing evidence of bilateral patchy perihilar infiltrates. The patient was admitted to inpatient setting for further treatment and evaluation. 1. Healthcare associated pneumonia. -Continue vancomycin plus cefepime. -Pancultures negative so far. -ID consult obtained. -Pulmonology following. 2. Hypertension. -Continue antihypertensives. 3. End-stage renal disease on hemodialysis M/W/F. -Nephrology following. 4. Status post kidney transplant in 2013. -Nephrology following. 5. Normocytic anemia. -Stool for OB x1-. -Epogen will be deferred to nephrology. -PRBC transfusion ordered. -Continue iron supplements. 6. Hyponatremia. -Etiology unclear. -Management as per nephrology. 7. Fluids, electrolytes, and nutrition. -Renal diet. 8. DVT prophylaxis -Bilateral SCDs. 9. Plan. -Continue antimicrobials. -Await clinical improvement before discharging the patient home. The patient was seen in collaboration with Dr. Sinha. Result Diagram: 08/28/18 0427 08/28/18 0427 Results 24hrs Laboratory Tests Test 08/28/18 04:27 White Blood Count 6.2 Red Blood Count 2.71 L Hemoglobin 7.6 L Hematocrit 23.0 L Mean Corpuscular Volume 84.9 Mean Corpuscular Hemoglobin 28.0 L Mean Corpuscular Hemoglobin Concent 33.0 Red Cell Distribution Width 14.3 Platelet Count 280 Mean Platelet Volume 9.6 Immature Granulocytes % 0.600 H Neutrophils % 53.0 Lymphocytes % 19.0 Monocytes % 18.0 H Eosinophils % 8.1 H Basophils % 1.3 Nucleated Red Blood Cells % 0.0 Immature Granulocytes # 0.040 H Neutrophils # 3.3 Lymphocytes # 1.2 Monocytes # 1.1 H Eosinophils # 0.5 Basophils # 0.1 Nucleated Red Blood Cells # 0.0 Sodium Level 126 L Potassium Level 4.8 Chloride Level 92 L Carbon Dioxide Level 26 Anion Gap 8 Blood Urea Nitrogen 19 Creatinine 7.58 #H Est Glomerular Filtrat Rate mL/min 8 L Glucose Level 83 Calcium Level 7.8 L Phosphorus Level 3.8 Magnesium Level 1.9 Exam/Review of Systems Exam Vitals Vital Signs Date Temp Pulse Resp B/P (MAP) Pulse Ox O2 O2 Flow FiO2 Time Delivery Rate 08/28/18 88 16 21 13:26 08/28/18 98.2 155/87 96 08:00 (109) 08/27/18 Room Air 02:00 Intake and Output 08/27/18 08/27/18 08/28/18 1515:00 23:00 07:00 IntakeIntake Total 220 ml 1000 ml 50 ml BalanceBalance 220 ml 1000 ml 50 ml Results Results 24hrs Laboratory Tests Test 08/28/18 04:27 White Blood Count 6.2 Red Blood Count 2.71 L Hemoglobin 7.6 L Hematocrit 23.0 L Mean Corpuscular Volume 84.9 Mean Corpuscular Hemoglobin 28.0 L Mean Corpuscular Hemoglobin Concent 33.0 Red Cell Distribution Width 14.3 Platelet Count 280 Mean Platelet Volume 9.6 Immature Granulocytes % 0.600 H Neutrophils % 53.0 Lymphocytes % 19.0 Monocytes % 18.0 H Eosinophils % 8.1 H Basophils % 1.3 Nucleated Red Blood Cells % 0.0 Immature Granulocytes # 0.040 H Neutrophils # 3.3 Lymphocytes # 1.2 Monocytes # 1.1 H Eosinophils # 0.5 Basophils # 0.1 Nucleated Red Blood Cells # 0.0 Sodium Level 126 L Potassium Level 4.8 Chloride Level 92 L Carbon Dioxide Level 26 Anion Gap 8 Blood Urea Nitrogen 19 Creatinine 7.58 #H Est Glomerular Filtrat Rate mL/min 8 L Glucose Level 83 Calcium Level 7.8 L Phosphorus Level 3.8 Magnesium Level 1.9 Medications Medication Current Medications IV Flush (NS 3 ml) 3 ml PER PROTOCOL IV ; Start 08/24/18 at 06:00 Ondansetron HCl (Zofran Inj) 4 mg Q6H PRN IV NAUSEA/VOMITING; Start 08/24/18 at 06:00 Acetaminophen (Tylenol Tab) 650 mg Q6H PRN PO .PAIN 1-3 OR TEMP Last a dministered on 08/28/18 01:28; Admin Dose 650 MG; Start 08/24/18 at 06:00 Albuterol/ Ipratropium (Duoneb) 3 ml Q2H RESP THERAPY PRN HHN SHORTNESS OF BREATH Last administered on 08/28/18 13:25; Admin Dose 3 ML; Start 08/24/18 at 06:00 Amlodipine Besylate (Norvasc) 10 mg DAILY PO Last administered on 08/27/18 08:13; Admin Dose 10 MG; Start 08/24/18 at 09:00 Carvedilol (Coreg) 6.25 mg BID PO Last administered on 08/27/18 20:14; Admin Dose 6.25 MG; Start 08/24/18 at 09:00 Folic Acid (Folic Acid) 1 mg DAILY PO Last administered on 08/28/18 09:37; Admin Dose 1 MG; Start 08/24/18 at 09:00 Metoprolol Succinate (Toprol Xl) 100 mg QHS PO Last administered on 08/27/18 20:14; Admin Dose 100 MG; Start 08/24/18 at 21:00 Cefepime HCl 50 ml @ 100 mls/hr Q24H IVPB Last administered on 08/28/18 05:20; Admin Dose 100 MLS/HR; Start 08/25/18 at 06:00 Vancomycin HCl (Vanco Iv Per Pharmacy) VANCOMYCIN PER PHARMACY PER PROTOCOL XX ; Start 08/24/18 at 09:00 Sodium Chloride 1,000 ml @ 0 mls/hr Q0M PRN IV TO KEEP SBP ABOVE 90; Start 08/25/18 at 08:28 Sodium Chloride (NS) -To prime the dialy... DIRECTED FOR HD PRN IV HD; Start 08/25/18 at 08:30 Heparin Sodium (Porcine) (Heparin (1000 Units/ml)) 4,000 unit AFTER DIALYSIS CATHETER Last administered on 08/26/18at 13:22; Admin Dose 3,200 UNIT; Start 08/25/18 at 09:00 Sodium Chloride 1,000 ml @ 0 mls/hr Q0M PRN IV TO KEEP SBP ABOVE 90; Start 08/25/18 at 08:33 Sodium Chloride (NS) -To prime the dialy... DIRECTED FOR HD PRN IV HD; Start 08/25/18 at 09:00 Guaifenesin/ Dextromethorphan (Robitussin Dm Liquid Cup) 5 ml Q4H PRN PO Cough Last administered on 08/28/18at 14:02; Admin Dose 5 ML; Start 08/25/18 at 14:00 Doxazosin Mesylate (Cardura) 2 mg BID PO Last administered on 08/27/18at 20:14; Admin Dose 2 MG; Start 08/25/18 at 21:00 Loperamide HCl (Imodium Cap) 2 mg GIVE IF INDICATED PRN PO DIARRHEA; Start 08/25/18 at 23:00 Epoetin Josh-epbx (Retacrit (Non-Esrd)) 10,000 unit MoWeFr@1700 SC Last administered on 08/26/18at 16:42; Admin Dose 10,000 UNIT; Start 08/26/18 at 17:00 Hydralazine HCl (Apresoline) 10 mg Q6H PRN IV SBP>160 Last administered on 08/26/18at 12:08; Admin Dose 10 MG; Start 08/26/18 at 12:00 Heparin Sodium (Porcine) (Heparin (1000 Units/ml)) 4,000 unit AFTER DIALYSIS CATHETER ; Start 08/27/18 at 21:30 Sodium Chloride 1,000 ml @ 0 mls/hr Q0M PRN IV TO KEEP SBP ABOVE 90; Start 08/27/18 at 21:10 Sodium Chloride (NS) -To prime the dialy... DIRECTED FOR HD PRN IV HD; Start 08/27/18 at 21:30 Miscellaneous Information (*Rx Drug Level Order Reminder*) RANDOM VANCO LEVEL 5... 0500 ONCE XX ; Start 08/29/18 at 05:00; Stop 08/29/18 at 05:01 BYRON NEGRETE NP August 28, 2018 14:08
[2018-08-28 14:30] VITALS: BP 152/88; PULSE 97; RESP 16
[2018-08-28] MEDS: BENZONATATE 100 MG CAP PO SCH ×2 (15:22→20:59)
[2018-08-28] MEDS: EPOETIN ALFA-EPBX (NON-ESRD 10,000 UNIT/ML VIAL SC SCH (17:25)
[2018-08-28 20:00] VITALS: BP 162/82; PULSE 83; RESP 19
[2018-08-28] MEDS: METOPROLOL (XL) 100 MG TAB PO SCH (21:00)
[2018-08-29] VITALS (16 sets, daily range): BP systolic 147–169; BP diastolic 86–101; PULSE 91–104; RESP 18–19
[2018-08-29] MEDS: ACETAMINOPHEN 325 MG TAB PO PRN (02:07)
[2018-08-29] MEDS: GUAIFENESIN/DM 5ML CUP PO PRN ×3 (04:56→13:03)
[2018-08-29] MEDS: HEPARIN 1000 UNITS/ML 10 ML INJ CATHETER SCH (05:59)
[2018-08-29] MEDS: CEFEPIME 1GM/50 ML (PMX) 50 ML IVPB SCH (06:05)
--- NOTE | 2018-08-29 07:45 | PN ---
Assessment/Plan VTE Prophylaxis Risk score (from Nsg)>0 risk: 4 Assessment/Plan Hospital Course Result Diagram: 08/29/18 0515 08/29/1815 Exam/Review of Systems Exam Vitals Results Results 24hrs Medications Medication BYRON NEGRETE NP August 29, 2018 07:45
[2018-08-29] MEDS: FOLIC ACID 1 MG TAB PO SCH (09:23)
[2018-08-29] MEDS: BENZONATATE 100 MG CAP PO SCH ×2 (09:23→13:03)
[2018-08-29] MEDS: DOXAZOSIN 2 MG TAB PO SCH (09:24)
[2018-08-29] MEDS: AMLODIPINE 10 MG TAB PO SCH (09:25)
[2018-08-29] MEDS ORDERED: AMOX1TAB10 PO (11:21)
[2018-08-29] MEDS ORDERED: DOXY100T20 PO (11:21)
[2018-08-29] MEDS ORDERED: BENZ-6 PO (11:22)
--- NOTE | 2018-08-29 11:27 | PDOCDIS ---
Discharge Instructions CONDITION [id number] Patient Condition: [id number] Stable HOME CARE INSTRUCTIONS: [id number] Special Diet: [id number] Low potassium. OTHER ORDERS: Other Orders: 1. Resume home medications. 2. Follow-up with your hemodialysis clinic as scheduled. 3. Complete the course of antibiotics. 4. Follow-up with your primary care physician in 1 week. 5. Please go to the nearest ER if you have any shortness of breath, persistent fevers, or any other unusual signs/symptoms. BYRON NEGRETE NP August 29, 2018 11:26
[2018-08-29] MEDS ORDERED: VANCOMYCIN 1 GM 250 ML IVPB SCH (11:30)
--- NOTE | 2018-08-29 11:31 | CONS ---
Consult Date/Type/Reason Admit Date/Time August 25, 2018 at 13:25 Initial Consult Date 08/28/18 Type of Consult Pulmonary Date/Time of Note DATE: 08/29/18 TIME: 11:29 Subjective Patient stable this morning. No new events. Denies respiratory distress. Objective Vital Signs Date Temp Pulse Resp B/P (MAP) Pulse Ox O2 O2 Flow FiO2 Time Delivery Rate 08/29/18 98.2 104 18 157/92 92 Room Air 08:46 (113) 08/28/18 21 13:26 Intake and Output 08/28/18 08/28/18 08/29/18 1515:00 23:00 07:00 IntakeIntake Total 800 ml 650 ml OutputOutput Total 3400 ml BalanceBalance 800 ml -2750 ml Exam GENERAL: Well-nourished well-developed gentleman comfortable at rest no acute distress VITAL SIGNS: per chart NECK: Supple. No JVD or lymphadenopathy. CARDIAC EXAM: S1, S2. No added sounds or murmurs. CHEST: clear bilaterally, No added sounds, rales or wheezes ABDOMEN: Soft, nontender. No guarding or rebound. EXTREMITIES: No cyanosis, clubbing or edema. NEUROLOGIC: Generalized weakness. No focal deficits. Vent Setting Fraction of Inspired Oxygen pe: 21 Results/Medications Result Diagram: 08/29/1815 08/29/18 0515 Results 24 hrs Laboratory Tests Test 08/29/18 05:15 White Blood Count 6.2 Red Blood Count 2.68 L Hemoglobin 7.5 L Hematocrit 22.2 L Mean Corpuscular Volume 82.8 Mean Corpuscular Hemoglobin 28.0 L Mean Corpuscular Hemoglobin Concent 33.8 Red Cell Distribution Width 14.3 Platelet Count 343 # Mean Platelet Volume 9.2 Immature Granulocytes % 0.600 H Neutrophils % 58.1 Lymphocytes % 16.5 Monocytes % 14.7 H Eosinophils % 8.7 H Basophils % 1.4 Nucleated Red Blood Cells % 0.0 Immature Granulocytes # 0.040 H Neutrophils # 3.6 Lymphocytes # 1.0 Monocytes # 0.9 Eosinophils # 0.5 Basophils # 0.1 Nucleated Red Blood Cells # 0.0 Sodium Level 131 L Potassium Level 3.8 Chloride Level 94 L Carbon Dioxide Level 30 Anion Gap 7 Blood Urea Nitrogen 11 Creatinine 4.27 #H Est Glomerular Filtrat Rate mL/min 15 L Glucose Level 89 Calcium Level 7.9 L Phosphorus Level 2.4 #L Magnesium Level 1.8 Random Vancomycin Level 12.8 Medications Current Medications IV Flush (NS 3 ml) 3 ml PER PROTOCOL IV ; Start 08/24/18 at 06:00 Ondansetron HCl (Zofran Inj) 4 mg Q6H PRN IV NAUSEA/VOMITING; Start 08/24/18 at 06:00 Acetaminophen (Tylenol Tab) 650 mg Q6H PRN PO .PAIN 1-3 OR TEMP Last administered on 08/29/18 02:07; Admin Dose 650 MG; Start 08/24/18 at 06:00 Albuterol/ Ipratropium (Duoneb) 3 ml Q2H RESP THERAPY PRN HHN SHORTNESS OF BREATH Last administered on 08/28/18 13:25; Admin Dose 3 ML; Start 08/24/18 at 06:00 Amlodipine Besylate (Norvasc) 10 mg DAILY PO Last administered on 08/29/18 09:25; Admin Dose 10 MG; Start 08/24/18 at 09:00 Carvedilol (Coreg) 6.25 mg BID PO Last administered on 08/29/18 09:24; Admin Dose 6.25 MG; Start 08/24/18 at 09:00 Folic Acid (Folic Acid) 1 mg DAILY PO Last administered on 08/29/18 09:23; Admin Dose 1 MG; Start 08/24/18 at 09:00 Metoprolol Succinate (Toprol Xl) 100 mg QHS PO Last administered on 08/27/18 20:14; Admin Dose 100 MG; Start 08/24/18 at 21:00 Cefepime HCl 50 ml @ 100 mls/hr Q24H IVPB Last administered on 08/29/18 06:05; Admin Dose 100 MLS/HR; Start 08/25/18 at 06:00 Vancomycin HCl (Vanco Iv Per Pharmacy) VANCOMYCIN PER PHARMACY PER PROTOCOL XX ; Start 08/24/18 at 09:00 Sodium Chloride 1,000 ml @ 0 mls/hr Q0M PRN IV TO KEEP SBP ABOVE 90; Start 08/25/18 at 08:28 Sodium Chloride (NS) -To prime the dialy... DIRECTED FOR HD PRN IV HD; Start 08/25/18 at 08:30 Heparin Sodium (Porcine) (Heparin (1000 Units/ml)) 4,000 unit AFTER DIALYSIS CATHETER Last administered on 08/29/18at 05:59; Admin Dose 3,200 UNIT; Start 08/25/18 at 09:00 Sodium Chloride 1,000 ml @ 0 mls/hr Q0M PRN IV TO KEEP SBP ABOVE 90; Start 08/25/18 at 08:33 Sodium Chloride (NS) -To prime the dialy... DIRECTED FOR HD PRN IV HD; Start 08/25/18 at 09:00 Guaifenesin/ Dextromethorphan (Robitussin Dm Liquid Cup) 5 ml Q4H PRN PO Cough Last administered on 08/29/18at 09:34; Admin Dose 5 ML; Start 08/25/18 at 14:00 Doxazosin Mesylate (Cardura) 2 mg BID PO Last administered on 08/29/18at 09:24; Admin Dose 2 MG; Start 08/25/18 at 21:00 Loperamide HCl (Imodium Cap) 2 mg GIVE IF INDICATED PRN PO DIARRHEA; Start 08/25/18 at 23:00 Epoetin Josh-epbx (Retacrit (Non-Esrd)) 10,000 unit MoWeFr@1700 SC Last administered on 08/28/18at 17:25; Admin Dose 10,000 UNIT; Start 08/26/18 at 17:00 Hydralazine HCl (Apresoline) 10 mg Q6H PRN IV SBP>160 Last administered on 08/01 10/18at 12:08; Admin Dose 10 MG; Start 08/26/18 at 12:00 Heparin Sodium (Porcine) (Heparin (1000 Units/ml)) 4,000 unit AFTER DIALYSIS CATHETER ; Start 08/27/18 at 21:30 Sodium Chloride 1,000 ml @ 0 mls/hr Q0M PRN IV TO KEEP SBP ABOVE 90; Start 08/27/18 at 21:10 Sodium Chloride (NS) -To prime the dialy... DIRECTED FOR HD PRN IV HD; Start 08/27/18 at 21:30 Benzonatate (Tessalon) 100 mg TID PO Last administered on 08/29/18at 09:23; Admin Dose 100 MG; Start 08/28/18 at 14:30 Vancomycin HCl 250 ml @ 125 mls/hr ONCE IVPB ; Start 08/29/18 at 11:30; Stop 08/29/18 at 18:00 Assessment/Plan Hospital Course (Demo Recall) Assessment 1. Acute hypoxemic respiratory failure secondary to volume overload 2. End-stage renal failure on hemodialysis Plan 1. Patient appears euvolemic at present 2. Continue hemodialysis tolerated Discharge planning okay from pulmonary standpoint ANTHONY BARON MD, [facility] August 29, 2018 11:31
[2018-08-29] MEDS ORDERED: FER325 PO (12:18)
--- NOTE | 2018-08-29 12:18 | DS ---
Date/Time of Note Date/Time of Note DATE: 08/29/18 TIME: 12:17 Discharge Summary Admission/Discharge Info Admit Date/Time August 25, 2018 at 13:25 Discharge Date/Time Discharge Diagnosis 1. Healthcare associated pneumonia. 2. Hypertension. 3. End-stage renal disease on hemodialysis M/W/F. 4. Cardiomyopathy. EF of 40-45%. 5. Status post kidney transplant in 2013. 6. Normocytic anemia. 7. Iron deficiency. Patient Condition: Stable Consults 1. Johann Brooks MD, Nephrology. 2. Arya Wheat MD, Pulmonary. 3. Fabián Dunn MD, Infectious Diseases. Procedures 2D Echocardiogram Conclusions: Mild concentric left ventricular hypertrophy. Mild enlargement of left ventricle cavity. Mild global left ventricular systolic dysfunction. Ejection fraction is visually estimated at 45-50 %. Abnormal Diastolic Function. E/E'= 15. There is mild enlargement of left atrium. Normal appearance of the mitral valve. Mild to moderate mitral valve regurgitation. Normal appearance and function of the tricuspid valve with trace physiologic regurgitation. Normal pulmonic valve appearance. There is trace pulmonic regurgitation. CT Chest IMPRESSION: 1. Bilateral patchy perihilar infiltrates with upper lobe predominance consistent with bilateral pneumonia. 2. Small bilateral pleural effusions. 3. Trace pericardial effusion. 4. End-stage bilateral renal atrophy with nonobstructing stones in the left kidney. 4. Right jugular central venous catheter in place. Hx of Present Illness This is a 48-year-old male with past medical history of hypertension, status post renal transplant in 2013, now dependent on hemodialysis who presents to the emergency room complaining of cough for over 1 week duration with subjective fevers. The patient's chest imaging was showing evidence of bilateral patchy perihilar infiltrates. The patient was admitted to inpatient setting for further treatment and evaluation. Hospital Course The patient was recently hospitalized at [facility] for similar complaints. The patient underwent a CT scan of the chest that was showing bilateral patchy perihilar infiltrates and small bilateral pleural effusions. T he patient was treated for underlying healthcare associated pneumonia with vancomycin and cefepime. The patient was maintained on inhaled bronchodilators and supplemental oxygen as needed. The patient was complaining of cough and the patient was started on antitussives with improvement in the patient's symptoms. A pulmonary consult and ID consult was also obtained since the patient had evidence of significant pneumonia despite reported treatment at [facility]. The patient underwent a 2D echocardiogram that was showing ejection fraction of 40 to 45%. The patient was maintained on ARBs and -beta blockers. The patient has underlying hypertension. He was maintained on antihypertensives. The patient is on hemodialysis and the patient was maintain ed on ultrafiltration as per nephrology. He had a kidney transplant in 2417, recently became dependent on hemodialysis. The patient was also noticed to have normocytic anemia. The patient's stool for OB x1 was negative. The patient was maintained on Epogen as per nephrology. The patient also had evidence of iron deficiency. Therefore, the patient was started on IV iron supplements. The patient required 1 unit of PRBC transfusion during this hospitalization. The patient's cultures remained negative. The patient responded slowly to the treatment strategy and the patient is stable to be discharged home, to be followed up with outpatient velocity shooter. The patient will be continued on oral antibiotic therapy to complete the course of treatment for his underlying healthcare associated pneumonia. Discharge Instructions 1. Resume home medications. 2. Follow-up with your hemodialysis clinic as scheduled. 3. Complete the course of antibiotics. 4. Follow-up with your primary care physician in 1 week. 5. Please go to the nearest ER if you have any shortness of breath, persistent fevers, or any other unusual signs/symptoms. The patient verbalized understanding of his discharge instructions. At this time I would like to thank all the consultants for seeing the patient and providing clinical recommendations. The patient was seen in collaboration with Dr. Sinha. Home Meds Active Scripts Ferrous Sulfate* (Ferrous Sulfate*) 325 Mg Tabec, 325 MG PO BID, #60 TAB Prov:BYRON NEGRETE NP 08/29/18 Benzonatate* (Tessalon Perle*) 100 Mg Capsule, 100 MG PO TID for 5 Days, #15 CAP Prov:BYRON NEGRETE NP 08/29/18 Doxycycline Hyclate* (Doxycycline Hyclate*) 100 Mg Tablet.dr, 100 MG PO BID for 7 Days, #14 TAB Prov:BYRON NEGRETE NP 08/29/18 Amoxicillin/Potassium Clav (Amox-Clav 875-125 mg Tablet) 875-125 mg Tab, 1 TAB PO BID for 7 Days, #14 TAB Prov:BYRON NEGRETE NP 08/29/18 Reported Medications Losartan Potassium* (Losartan Potassium*) 50 Mg Tablet, 50 MG PO BID, TAB 08/24/18 Amlodipine Besylate* (Amlodipine Besylate*) 10 Mg Tablet, 10 MG PO DAILY for 30 Days, #30 08/24/18 Carvedilol* (Carvedilol*) 6.25 Mg Tablet, 6.25 MG PO BID for 30 Days, #60 08/24/18 Folic Acid* (Folic Acid*) 1 Mg Tablet, 1 MG PO DAILY for 30 Days, #30 08/24/18 Discontinued Reported Medications Guaifenesin/Dextromethorphan (Mucinex Dm ER 1,200-60 mg Tab) 1 Each Tbmp.12hr, 1 EACH PO, TAB 08/24/18 [Nyquil] No Conflict Check, 30 ML 08/24/18 Azithromycin* (Azithromycin*) 250 Mg Tablet, 500 MG PO ONCE for 1 Day, #1 TAB 08/24/18 Amoxicillin/Potassium Clav (Amox-Clav 500-125 mg Tablet) 500-125 mg Tab, 1 TAB PO DAILY for 5 Days, TAB 08/24/18 Metoprolol Succinate* (Toprol XL*) 100 Mg Tab.sr.24h, 100 MG PO QHS for 30 Days, #30 08/24/18 Follow-up Plan Patient to follow-up with his primary care physician in 1 week. Primary Care Provider Not On Staff Doctor Time spent on discharge: > 30 minutes Pending Labs Laboratory Tests Test 08/29/18 05:15 White Blood Count 6.2 10^3/ul (4.8-10.8) Red Blood Count 2.68 10^6/ul (4.70-6.10) Hemoglobin 7.5 g/dl (14.0-18.0) Hematocrit 22.2 % (42.0-52.0) Mean Corpuscular Volume 82.8 fl (82.0-101.0) Mean Corpuscular Hemoglobin 28.0 pg (29.0-33.0) Mean Corpuscular Hemoglobin Concent 33.8 g/dl (32.0-37.0) Red Cell Distribution Width 14.3 % (11.5-14.5) Platelet Count 343 10^3/UL (140-415) Mean Platelet Volume 9.2 fl (7.4-10.4) Immature Granulocytes % 0.600 % (0.001-0.429) Neutrophils % 58.1 % (39.0-77.0) Lymphocytes % 16.5 % (15.0-51.0) Monocytes % 14.7 % (0.0-11.0) Eosinophils % 8.7 % (0.0-7.0) Basophils % 1.4 % (0.0-2.0) Nucleated Red Blood Cells % 0.0 /100WBC (0.0-0.0) Immature Granulocytes # 0.040 10^3/ul (0.0-0.031) Neutrophils # 3.6 10^3/ul (1.6-7.5) Lymphocytes # 1.0 10^3/ul (0.8-2.9) Monocytes # 0.9 10^3/ul (0.3-0.9) Eosinophils # 0.5 10^3/ul (0.0-0.5) Basophils # 0.1 10^3/ul (0.0-0.1) Nucleated Red Blood Cells # 0.0 10^3/ul (0.0-0.0) Sodium Level 131 mmol/L (135-144) Potassium Level 3.8 mmol/L (3.5-5.1) Chloride Level 94 mmol/L (97-110) Carbon Dioxide Level 30 mmol/L (21-31) Anion Gap 7 (5-13) Blood Urea Nitrogen 11 mg/dl (7-20) Creatinine 4.27 mg/dl (0.61-1.24) Est Glomerular Filtrat Rate mL/min 15 mL/min (>60) Glucose Level 89 mg/dl (70-220) Calcium Level 7.9 mg/dl (8.4-10.2) Phosphorus Level 2.4 mg/dl (2.5-4.9) Magnesium Level 1.8 mg/dl (1.7-2.5) Random Vancomycin Level 12.8 ug/ml BYRON NEGRETE NP August 29, 2018 12:18
--- NOTE | 2018-08-29 14:25 | CONS ---
Assessment/Plan Assessment/Plan Hospital Course (Demo Recall) Feels better Microbiology: All cultures are negative Indwelling: Right chest permacath Antimicrobials: Vancomycin, cefepime Physical examination: Well-developed well-nourished middle-aged man who is alert in no distress head atraumatic normocephalic sclera nonicteric vehicle mucosa dry neck is supple chest rise symmetrical breath sounds diminished bases. Heart: S1-S2 abdomen soft bowel sounds present extremities without cyanosis Assessment: 1. Recurrent Healthcare associated pneumonia 2. End-stage renal disease, hemodialysis dependent 3. History of kidney transplant in 2013 4. Hypertension Plan: Stable, ok dc on oral Levaquin and Doxycycline for 7 more days Consultation Date/Type/Reason Admit Date/Time August 25, 2018 at 13:25 Initial Consult Date Type of Consult id Date/Time of Note DATE: 08/29/18 TIME: 14:25 Exam/Review of Systems Exam Vitals Vital Signs Date Temp Pulse Resp B/P (MAP) Pulse Ox O2 O2 Flow FiO2 Time Delivery Rate 08/29/18 98.2 104 18 157/92 92 Room Air 08:46 (113) 08/28/18 21 13:26 Intake and Output 08/28/18 08/28/18 08/29/18 1515:00 23:00 07:00 IntakeIntake Total 800 ml 650 ml OutputOutput Total 3400 ml BalanceBalance 800 ml -2750 ml Results Result Diagram: 08/29/18 0515 08/29/18 0515 Results 24hrs Laboratory Tests Test 08/29/18 05:15 White Blood Count 6.2 Red Blood Count 2.68 L Hemoglobin 7.5 L Hematocrit 22.2 L Mean Corpuscular Volume 82.8 Mean Corpuscular Hemoglobin 28.0 L Mean Corpuscular Hemoglobin Concent 33.8 Red Cell Distribution Width 14.3 Platelet Count 343 # Mean Platelet Volume 9.2 Immature Granulocytes % 0.600 H Neutrophils % 58.1 Lymphocytes % 16.5 Monocytes % 14.7 H Eosinophils % 8.7 H Basophils % 1.4 Nucleated Red Blood Cells % 0.0 Immature Granulocytes # 0.040 H Neutrophils # 3.6 Lymphocytes # 1.0 Monocytes # 0.9 Eosinophils # 0.5 Basophils # 0.1 Nucleated Red Blood Cells # 0.0 Sodium Level 131 L Potassium Level 3.8 Chloride Level 94 L Carbon Dioxide Level 30 Anion Gap 7 Blood Urea Nitrogen 11 Creatinine 4.27 #H Est Glomerular Filtrat Rate mL/min 15 L Glucose Level 89 Calcium Level 7.9 L Phosphorus Level 2.4 #L Magnesium Level 1.8 Random Vancomycin Level 12.8 Medications Medication Current Medications IV Flush (NS 3 ml) 3 ml PER PROTOCOL IV ; Start 08/24/18 at 06:00 Ondansetron HCl (Zofran Inj) 4 mg Q6H PRN IV NAUSEA/VOMITING; Start 08/24/18 at 06:00 Acetaminophen (Tylenol Tab) 650 mg Q6H PRN PO .PAIN 1-3 OR TEMP Last administered on 08/29/18 02:07; Admin Dose 650 MG; Start 08/24/18 at 06:00 Albuterol/ Ipratropium (Duoneb) 3 ml Q2H RESP THERAPY PRN HHN SHORTNESS OF BREATH Last administered on 08/28/18 13:25; Admin Dose 3 ML; Start 08/24/18 at 06:00 Amlodipine Besylate (Norvasc) 10 mg DAILY PO Last administered on 08/29/18 09: 25; Admin Dose 10 MG; Start 08/24/18 at 09:00 Carvedilol (Coreg) 6.25 mg BID PO Last administered on 08/29/18 09:24; Admin Dose 6.25 MG; Start 08/24/18 at 09:00 Folic Acid (Folic Acid) 1 mg DAILY PO Last administered on 08/29/18 09:23; Admin Dose 1 MG; Start 08/24/18 at 09:00 Metoprolol Succinate (Toprol Xl) 100 mg QHS PO Last administered on 08/27/18at 20:14; Admin Dose 100 MG; Start 08/24/18 at 21:00 Cefepime HCl 50 ml @ 100 mls/hr Q24H IVPB Last administered on 08/29/18 06:05; Admin Dose 100 MLS/HR; Start 08/25/18 at 06:00 Vancomycin HCl (Vanco Iv Per Pharmacy) VANCOMYCIN PER PHARMACY PER PROTOCOL XX ; Start 08/24/18 at 09:00 Sodium Chloride 1,000 ml @ 0 mls/hr Q0M PRN IV TO KEEP SBP ABOVE 90; Start 08/25/18 at 08:28 Sodium Chloride (NS) -To prime the dialy... DIRECTED FOR HD PRN IV HD; Start 08/25/18 at 08:30 Heparin Sodium (Porcine) (Heparin (1000 Units/ml)) 4,000 unit AFTER DIALYSIS CATHETER Last administered on 08/29/18at 05:59; Admin Dose 3,200 UNIT; Start 08/25/18 at 09:00 Sodium Chloride 1,000 ml @ 0 mls/hr Q0M PRN IV TO KEEP SBP ABOVE 90; Start 08/25/18 at 08:33 Sodium Chloride (NS) -To prime the dialy... DIRECTED FOR HD PRN IV HD; Start 08/25/18 at 09:00 Guaifenesin/ Dextromethorphan (Robitussin Dm Liquid Cup) 5 ml Q4H PRN PO Cough Last administered on 08/29/18at 13:03; Admin Dose 5 ML; Start 08/25/18 at 14:00 Doxazosin Mesylate (Cardura) 2 mg BID PO Last administered on 08/29/18at 09:24; Admin Dose 2 MG; Start 08/25/18 at 21:00 Loperamide HCl (Imodium Cap) 2 mg GIVE IF INDICATED PRN PO DIARRHEA; Start 08/25/18 at 23:00 Epoetin Josh-epbx (Retacrit (Non-Esrd)) 10,000 unit MoWeFr@1700 SC Last administered on 08/28/18at 17:25; Admin Dose 10,000 UNIT; Start 08/26/18 at 17:00 Hydralazine HCl (Apresoline) 10 mg Q6H PRN IV SBP>160 Last administered on 08/26/18at 12:08; Admin Dose 10 MG; Start 08/26/18 at 12:00 Heparin Sodium (Porcine) (Heparin (1000 Units/ml)) 4,000 unit AFTER DIALYSIS CATHETER ; Start 08/27/18 at 21:30 Sodium Chloride 1,000 ml @ 0 mls/hr Q0M PRN IV TO KEEP SBP ABOVE 90; Start 08/27/18 at 21:10 Sodium Chloride (NS) -To prime the dialy... DIRECTED FOR HD PRN IV HD; Start 08/27/18 at 21:30 Benzonatate (Tessalon) 100 mg TID PO Last administered on 08/29/18at 13:03; Admin Dose 100 MG; Start 08/28/18 at 14:30 Vancomycin HCl 250 ml @ 125 mls/hr ONCE IVPB Last administered on 08/29/18at 11:25; Admin Dose 125 MLS/HR; Start 08/29/18 at 11:30; Stop 08/29/18 at 18:00 PABLITO CASTILLO NP August 29, 2018 14:25
== END 2018-08-29 16:30 | disposition home or self-care (01) | DRG 193 ==
LOC: E/R 02:08 → PP2 04:31 → OBSVTOIN 08-25 13:25
PROVIDERS: ADMIT Internal Medicine; ATTEND Internal Medicine
PROC: 5A1D70Z Performance of Urinary Filtration, Intermittent, Less than 6 Hours Per Day (ICD-10-PCS; principal; 2018-08-25)
PROC: 30233N1 Transfusion of Nonautologous Red Blood Cells into Peripheral Vein, Percutaneous Approach (ICD-10-PCS; 2018-08-25)
DX: J18.9 Pneumonia, unspecified organism (principal); N18.6 End stage renal disease; I12.0 Hypertensive chronic kidney disease with stage 5 chronic kidney disease or end stage renal disease; E87.1 Hypo-osmolality and hyponatremia; T86.12 Kidney transplant failure; E87.5 Hyperkalemia; E11.22 Type 2 diabetes mellitus with diabetic chronic kidney disease; D63.1 Anemia in chronic kidney disease; E78.5 Hyperlipidemia, unspecified; Z99.2 Dependence on renal dialysis
CPT/HCPCS: 36430; 71045; 71250; 80048; 80053; 80061; 80202; 82270; 82728; 83036; 83540; 83605; 83735; 84100; 84145; 84484; 85025; 85610; 85730; 86644; 86703; 86850; 86900; 86901; 86920; 87045; 87070; 87075; 87340; 87400; 90935; 93005; 93306; 94640; 94664; 96365; 96375; 99217; G0378; J0360; J0692; J1644; J2916; J3370; J7040; P9016; Q5106

== ENCOUNTER 2018-09-04 19:28 | Emergency (ER) | payer SELFPAY ==
[~2018-09-04] VITALS: Wt 69.5 kg
[~2018-09-04 19:28] MED LIST: AMLO-147 PO; AMOX1TAB10 PO; BENZ-6 PO; CARV6.2579 PO; DOXY100T20 PO; FER325 PO; FOLI-49 PO; LOSA50TA14 PO
[2018-09-04 19:44] VITALS: BP 147/89; PULSE 100; RESP 20; Wt 69.5 kg
== END 2018-09-05 00:15 | disposition left against medical advice (07) ==
LOC: E/R 19:28
DX: Z53.21 Procedure and treatment not carried out due to patient leaving prior to being seen by health care provider (principal)
CPT/HCPCS: 93005